=== PATIENT | female | born 1975 | race Caucasian/White ===

== ENCOUNTER → 2018-04-15 11:30 | Outpatient (CLI) | payer OTHER, SELFPAY ==
--- NOTE | 2018-04-15 | DI.MG.S_ITS ---
BILATERAL DIGITAL SCREENING MAMMOGRAM 3D/2D WITH CAD WITH AUGMENTATION: 04/15/2018 CLINICAL: Routine screening. Comparison is made to exams dated: 11/09/2016 mammogram, 08/27/2008 mammogram, and 09/18/2008 mammogram - outside location. The tissue of both breasts is heterogeneously dense. This may lower the sensitivity of mammography. Current study was also evaluated with a Computer Aided Detection (CAD) system. Bilateral breast implants are intact. No significant masses, calcifications, or other findings are seen in either breast. There has been no significant interval change. IMPRESSION: NEGATIVE There is no mammographic evidence of malignancy. A 1 year screening mammogram is recommended. This exam was interpreted at Station ID: [id number]. NOTE: For mammograms, a report in lay terms will be sent to the patient. Approximately 15% of breast malignancies will not be visualized mammographically. In the management of a palpable breast mass, a negative mammogram must not discourage biopsy of a clinically suspicious lesion. Electronically Signed By: Alejandro [email or web address]:04/15/2018 14:30:56 letter sent: Normal Exam ACR BI-RADS Category 1: Negative 3341F
== END ==
PROVIDERS: Visit Provider Nurse Practitioner Family
DX: Z12.31 Encounter for screening mammogram for malignant neoplasm of breast (principal)
CPT/HCPCS: 77063; 77067

== ENCOUNTER 2019-05-04 15:58 | Emergency (ER) | payer BC, SELFPAY ==
[2019-05-04 16:55] VITALS: BP 131/73; PULSE 57; RESP 16; TEMP 36.3; O2SAT 100; BMI 18.7
[2019-05-04 17:22] LABS: Prothrombin Time 11.2 SECONDS (10.1-12.7)
[2019-05-04 17:26] LABS: Add Manual Diff / Slide Review NO; BUN Creatinine Ratio 15.7 (6-22); Basophils Absolute Auto 100 /uL (0-100); Basophils Percent Auto 1.3 % (0-2); Blood Urea Nitrogen 11 mg/dL (7-17); Calcium 9.4 mg/dL (8.4-10.2); Carbon Dioxide 18 mmol/L (22-32); Chloride 97 mmol/L (98-107); Eosinophils Absolute Auto 100 /uL (0-450); Eosinophils Percent Auto 1.4 % (2-4); Estimated Glomerular Filt Rate > 60.0 mL/min (>60); Glucose 104 mg/dL (70-100); Hematocrit 35.5 % (36-46); Hemoglobin 11.8 g/dL (12.0-16.0); Lymphocytes Absolute Auto 1100 /uL (1100-4500); Lymphocytes Percent Auto 18.2 % (25-40); Mean Corpuscular HGB Conc 33.2 % (30-36); Mean Corpuscular Hemoglobin 28.2 PG (26-34); Mean Corpuscular Volume 84.7 fL (80-100); Monocytes Absolute Auto 200 /uL (0-900); Neutrophils Absolute Auto 4700 /uL (1500-7000); Neutrophils Percent Auto 75.1 % (50-75); Platelet Count 165 X10^3/uL (150-400); Red Blood Cell Count 4.19 X10^6/uL (4.0-5.2); Red Cell Distribution Width 14.3 % (11.6-14.8); Sodium 132 mmol/L (137-145); White Blood Cell Count 6.3 X10^3/uL (4.5-11.0)
[2019-05-04 17:29] LABS: HEMOLYSIS 67 (0-50)
--- NOTE | 2019-05-04 17:51 | DI.CT.S_ITS ---
PROCEDURE: CT KIDNEY URETER BLADDER (KUB) INDICATIONS: flank pain x 4 days blood in urine TECHNIQUE: Noncontrast 5 mm thick sections acquired from the diaphragms to the symphysis. 5 mm thick coronal and sagittal reformats were then performed. For radiation dose reduction, the following was used: automated exposure control, adjustment of mA and/or kV according to patient size. COMPARISON: None. FINDINGS: Image quality: Excellent. Lung bases: Lung bases are clear. Heart size is normal. Bilateral mammoplasty implants are partially seen. Urinary system: There is an obstructing stone seen involving the distal right ureter, as on series 2 image 72 measuring 3 mm. There is associated moderate right-sided hydroureter and hydronephrosis. Moderate right-sided perinephric fat stranding can be seen. Tiny nonobstructing kidney stones are seen on both sides, which measure up to 1 mm. No left-sided hydronephrosis is seen. The kidneys demonstrate normal size. No focal bladder wall thickening is seen. No calcified bladder stones are seen. Other solid organs: Liver is normal in size. Gallbladder has been removed. Pancreas is normal in contours. Spleen is normal in size. No adrenal nodules. Peritoneum and bowel: Unenhanced bowel loops demonstrate normal wall thickness and caliber. No free fluid or air. A normal appendix is incidentally noted. Nodes and vessels: No retroperitoneal or mesenteric adenopathy by size criteria. Aorta and inferior vena cava are normal in caliber. Abdominal wall: No ventral hernias. Pelvis: No free pelvic fluid. No inguinal hernias or adenopathy. Bones: No suspicious bony lesions. No vertebral body compression fractures. IMPRESSION: 3 mm obstructing stone seen involving the distal right ureter, with associated right-sided hydroureter, hydronephrosis, perinephric fat stranding. Nonobstructing bilateral renal stones are seen. Incidental note is made of: Mammoplasty implants Cholecystectomy Normal appendix Dictated by: Willis Yeung M.D. on 05/04/2019 at 19:03 Approved by: Willis Yeung M.D. on 05/04/2019 at 19:06
[2019-05-04 17:57] LABS: Appearance Urine UA SL CLOUDY; Bilirubin Urine UA NEGATIVE (NEGATIVE); Color Urine UA YELLOW; Glucose Urine UA NEGATIVE (Negative); Ketones Urine UA 3+ (NEGATIVE); Leukocyte Esterase Urine UA NEGATIVE (NEGATIVE); Nitrite Urine UA NEGATIVE (Negative); Occult Blood Urine UA 3+ (Negative); Protein Urine UA 1+ (Negative); Urobilinogen Urine UA 0.2 E.U./dL (0.2)
[2019-05-04] MEDS: KETOROLAC 60 MG/2 ML VIAL 15 MG INJ (18:02)
[2019-05-04] MEDS: ONDANSETRON 4 MG/2 ML INJ IV ×2 (18:03→21:02)
[2019-05-04 18:16] LABS: RBC Urine 30-100/HPF (0-5/HPF); WBC Urine 1-5/HPF (0-5/HPF)
[2019-05-04 18:17] LABS: Bacteria Urine Moderate (10-30); Calcium Oxalate Crystals Urine Few; Culture Indicated Urine Cult Not Indicated
[2019-05-04] MEDS: SODIUM CHLORIDE 0.9% 1,000 ML 1000 ML IV (18:18)
[2019-05-04 18:22] VITALS: BP 104/64; PULSE 56; RESP 16; O2SAT 100
--- NOTE | 2019-05-04 18:35 | ED.ABDPAIN ---
HPI - Abdominal Pain <NIRAV Abbasi - Last Filed: 05/04/19 21:51> General Chief Complaint: Abdominal Pain Stated Complaint: kidney stones, in pain, states on lots of pain med Time Seen by Provider: 05/04/19 17:53 Source: patient Mode of arrival: ambulatory Limitations: no limitations History of Present Illness HPI narrative: This is a 43-year-old female, nonsmoker, presents with family with chief complain of right flank pain and urinary frequency for 4 days. Patient self treated at home with Tylenol and Motrin for pain and she had amoxicillin at home and started antibiotic medication thinking she may have urinary tract infection. Then, patient was seen by her primary care provider and had urine sample evaluated and sent out for culture and is currently waiting for the result. Patient reports she is prescribed with amoxicillin 500 mg q.i.d. dose for 10 days. She has completed for 4 days so far. She felt like her symptoms were improving up until yesterday then, she has recurring right flank pain, chills, emesis x1, hematuria when she submitted a urine sample today in ED. She reports pain is strong and dull aches. Patient is unable to explained aggravating or elevating factors for pain. Patient has UTI in the past twice in her lifetime and no history of kidney stones. I contacted our lab for urine culture test result since the patient's primary care provider's EMR is not available to view. The lab does not have urine culture test from the patient and this might have been sent out to other lab, unable to verify sensitivity test result. Patient had taken [place] at home today but the pain has not been effectively managed. She also had taken tamsulosin 0.4 mg 2 doses today and had started prednisone taper dose. Related Data Previous Rx's Medication Instructions Recorded cephalexin [Keflex] 500 mg PO Q6H 10 Days #40 cap 05/04/19 ondansetron 4 mg PO Q6-8H PRN #7 tab 05/04/19 oxycodone-acetaminophen [Percocet] 1 tab PO Q4-6H PRN #10 tab 05/04/19 Allergies Allergy/AdvReac Type Severity Reaction Status Date / Time codeine [CODEINE] AdvReac Unknown NAUSEA / Unverified 11/28/17 12:50 VOMITING Review of Systems <NIRAV Abbasi - Last Filed: 05/04/19 21:51> Review of Systems Narrative: General: See HPI HEENT: Denies sinus pain, ear pain, sore throat, difficulty swallowing, dizziness. Respiratory: Denies dyspnea, cough, wheezing, hemoptysis, sputum. Cardiovascular: Denies chest pain, palpitations, orthopnea, edema. Gastrointestinal: Reports nausea and vomitingx1. Mild suprapubic discomfort. Denies diarrhea, constipation, melena. : Reports urinary frequency, had a small blood in urine when provide urine sample in ED. Denies dysuria, incontinence, previous hematuria, urinary retention. Musculoskeletal: Reports right lower back pain. Denies weakness, joint pain or bony pain. Skin: Denies rash, skin lesions, or other. Neurologic: Denies weakness, headache, numbness, change in speech, confusion, seizures, incoordination. Psychiatric: No concerning psychosocial issues. 12-point review of systems is negative except for those stated above. PFSH <NIRAV Abbasi - Last Filed: 05/04/19 21:51> Surgical History H/O breast augmentation (Acute) History of bilateral tubal ligation (Acute) History of cholecystectomy (Acute) Social History Smoking Status: Never smoker Social History Smoking Status: Never smoker Exam <NIRAV Abbasi - Last Filed: 05/04/19 21:51> Narrative Exam Narrative: GEN: Alert, oriented x 3, well appearing and nourished, and mild distress. Head: Normal cephalic, atraumatic. No scalp or temporal tenderness, palpable mass or rash. EYES: Pupils are equal, round, and reactive to light and accommodation. Extraocular muscles are intact bilaterally. There is no subconjunctival hemorrhage, exudate and sclera non-icteric. ENT: Bilateral auditory canals and tympanic membranes clear. Hearing grossly intact. Nose without bleeding, purulent discharge or deviation. Facial sinuses nontender to palpate. Mucous membrane moist, no mucosal lesion. Throat without erythema, tonsillar hypertrophy or exudate. Uvula in midline, airway patent. Neck: Trachea in midline. No JVD, non-tender without lymphadenopathy. No masses or thyroid megaly. Supple, non-tender and no meningeal signs. CARDIAC: Normal regular rate and rhythm without murmurs, gallops, or rubs. No chest wall tenderness. No peripheral edema, cyanosis or pallor. Capillary refill is less than 2 seconds. RESPIRATORY: Lungs are cleat to auscultate bilaterally. No cough, wheezes, rales, or rhonchi. No stridor, respiratory distress, increase work of breathing, or accessary muscle used. ABD: Mild tenderness in suprapubic region with palpation. Abdomen soft and non-distended. No guarding or rebound tenderness to palpate. Bowel sounds are normal in all 4 quadrants. There is no palpable masses or organomegaly. EXT: Full painless ROM of all extremities with no loss of sensation, strength, effusion or edema. SKIN: Warm, dry, normal color for patient. No erythema, lesions or rash over visible areas. BACK: Right flank pain tender to palpate. No deformity or crepitance. NEUROLOGICAL: Alert and oriented to place, time and person. Sensation and motor function intact bilaterally. No facial droops, dysphasia. PSYCHIATRIC: Good judgement and reason, without hallucinations, abnormal affect or abnormal behaviors during the examination. Initial Vital Signs Initial Vital Signs: Vital Signs Temperature 97.3 F L 05/04/19 16:55 Pulse Rate 57 L 05/04/19 16:55 Respiratory Rate 16 05/04/19 16:55 Blood Pressure 131/73 05/04/19 16:55 Pulse Oximetry 100 05/04/19 16:55 <Cinthia Ballard DO - Last Filed: 05/06/19 18:51> Initial Vital Signs Initial Vital Signs: Vital Signs Temperature 97.3 F L 05/04/19 16:55 Pulse Rate 57 L 05/04/19 16:55 Respiratory Rate 16 05/04/19 16:55 Blood Pressure 131/73 05/04/19 16:55 Pulse Oximetry 100 05/04/19 16:55 Scores <NIRVA Abbasi - Last Filed: 05/04/19 21:51> GCS [place] coma scale eye opening: Spontaneous Connie coma scale verbal response: Orientated Connie coma scale motor response: Obey commands Connie coma scale total score: 15 Course <NIRAV Abbasi - Last Filed: 05/04/19 21:51> Orders Ordered: Discontinued Medications Sodium Chloride (Normal Saline 0.9%) 1,000 mls @ 1,000 mls/hr IV BOLUS ONE Stop: 05/04/19 19:06 Last Infusion: 05/04/19 19:27 Dose: 0 mls/hr Documented by: Admin: 05/04/19 18:18 Dose: 1,000 mls/hr Documented by: FRANCES Ketorolac Tromethamine (Toradol) 15 mg INJ NOW ONE Stop: 05/04/19 17:52 Last Admin: 05/04/19 18:02 Dose: 15 mg Documented by: FRANCES Ketorolac Tromethamine (Toradol) 15 mg IV NOW ONE Stop: 05/04/19 20:04 Last Admin: 05/04/19 20:17 Dose: 15 mg Documented by: RENETTA Morphine Sulfate (Morphine) 4 mg IV NOW ONE Stop: 05/04/19 20:04 Last Admin: 05/04/19 20:16 Dose: 4 mg Documented by: RENETTA Ondansetron HCl (Zofran) 4 mg IV NOW ONE Stop: 05/04/19 17:52 Last Admin: 05/04/19 18:03 Dose: 4 mg Documented by: FRANCES Ondansetron HCl (Zofran Odt Prepack) 1 bottle MISC SEEINSTR ONE Stop: 05/04/19 20:56 Last Admin: 05/04/19 21:02 Dose: 1 bottle Documented by: RENETTA Ondansetron HCl (Zofran) 4 mg IV NOW ONE Stop: 05/04/19 20:56 Last Admin: 05/04/19 21:02 Dose: 4 mg Documented by: RENETTA Vital Signs Vital signs: Vital Signs - 8 hr 05/04/19 16:55 05/04/19 18:22 05/04/19 20:58 Temperature 97.3 F L Pulse Rate 57 L 56 L 57 L Respiratory Rate 16 16 16 Blood Pressure 131/73 Blood Pressure [Left Arm] 104/64 118/75 Pulse Oximetry 100 100 100 <Cinthia Ballard DO - Last Filed: 05/06/19 18:51> Orders Ordered: Discontinued Medications Sodium Chloride (Normal Saline 0.9%) 1,000 mls @ 1,000 mls/hr IV BOLUS ONE Stop: 05/04/19 19:06 Last Infusion: 05/04/19 19:27 Dose: 0 mls/hr Documented by: Admin: 05/04/19 18:18 Dose: 1,000 mls/hr Documented by: FRANCES Ketorolac Tromethamine (Toradol) 15 mg INJ NOW ONE Stop: 05/04/19 17:52 Last Admin: 05/04/19 18:02 Dose: 15 mg Documented by: FRANCES Ketorolac Tromethamine (Toradol) 15 mg IV NOW ONE Stop: 05/04/19 20:04 Last Admin: 05/04/19 20:17 Dose: 15 mg Documented by: RENETTA Morphine Sulfate (Morphine) 4 mg IV NOW ONE Stop: 05/04/19 20:04 Last Admin: 05/04/19 20:16 Dose: 4 mg Documented by: RENETTA Ondansetron HCl (Zofran) 4 mg IV NOW ONE Stop: 05/04/19 17:52 Last Admin: 05/04/19 18:03 Dose: 4 mg Documented by: FRANCES Ondansetron HCl (Zofran Odt Prepack) 1 bottle MISC SEEINSTR ONE Stop: 05/04/19 20:56 Last Admin: 05/04/19 21:02 Dose: 1 bottle Documented by: RENETTA Ondansetron HCl (Zofran) 4 mg IV NOW ONE Stop: 05/04/19 20:56 Last Admin: 05/04/19 21:02 Dose: 4 mg Documented by: RENETTA Vital Signs Vital signs: Vital Signs - 8 hr 05/04/19 16:55 05/04/19 18:22 05/04/19 20:58 Temperature 97.3 F L Pulse Rate 57 L 56 L 57 L Respiratory Rate 16 16 16 Blood Pressure 131/73 Blood Pressure [Left Arm] 104/64 118/75 Pulse Oximetry 100 100 100 MDM - Abdominal Pain <Jameson NIRAV Francis - Last Filed: 05/04/19 21:51> Differential Diagnosis Differential diagnosis: Likely other (Pyelonephritis, UTI, kidney stone, obstructing kidney stone with infection) Medical Records Attestation: I reviewed the patient's medical records. Lab Data Attestation: I reviewed the patient's lab results. Result diagrams: 05/04/19 17:05 05/04/19 17:05 Labs: Lab Results 05/04/19 05/04/19 05/04/19 Range/Units 17:05 17:05 17:05 WBC 6.3 (4.5-11.0) X10^3/uL RBC 4.19 (4.0-5.2) X10^6/uL Hgb 11.8 L (12.0-16.0) g/dL Hct 35.5 L (36-46) % MCV 84.7 (80-100) fL MCH 28.2 (26-34) PG MCHC 33.2 (30-36) % RDW 14.3 (11.6-14.8) % Plt Count 165 (150-400) X10^3/uL Neut % (Auto) 75.1 H (50-75) % Lymph % (Auto) 18.2 L (25-40) % [place] % (Auto) 4.0 (3-14) % Eos % (Auto) 1.4 L (2-4) % Baso % (Auto) 1.3 (0-2) % Neut # (Auto) 4700 (9065-6479) /uL Lymph # (Auto) 1100 (4099-9057) /uL [place] # (Auto) 200 (0-900) /uL Eos # (Auto) 100 (0-450) /uL Baso # (Auto) 100 (0-100) /uL PT 11.2 (10.1-12.7) SECONDS INR 1.0 (0.9-1.3) Sodium 132 L (137-145) mmol/L Potassium 4.0 (3.4-5.1) mmol/L Chloride 97 L (98-107) mmol/L Carbon Dioxide 18 L (22-32) mmol/L BUN 11 (7-17) mg/dL Creatinine 0.70 (0.52-1.04) mg/dL Estimated GFR > 60.0 (>60) mL/min BUN/Creatinine Ratio 15.7 (6-22) Glucose 104 H (70-100) mg/dL Calcium 9.4 (8.4-10.2) mg/dL Urine Color Urine Appearance Urine pH (4.5-8.0) Ur Specific [place] (1.000-1.035) Urine Protein (Negative) Urine Glucose (UA) (Negative) g/dL Urine Ketones (NEGATIVE) Urine Occult Blood (Negative) Urine Nitrate (Negative) Urine Bilirubin (NEGATIVE) Urine Urobilinogen (0.2) E.U./dL Ur Leukocyte Esterase (NEGATIVE) Urine RBC (0-5/HPF) Urine WBC (0-5/HPF) Calcium Oxalate Crystal Urine Bacteria (None) Ur Culture Indicated? 05/04/19 Range/Units 17:45 WBC (4.5-11.0) X10^3/uL RBC (4.0-5.2) X10^6/uL Hgb (12.0-16.0) g/dL Hct (36-46) % MCV (80-100) fL MCH (26-34) PG MCHC (30-36) % RDW (11.6-14.8) % Plt Count (150-400) X10^3/uL Neut % (Auto) (50-75) % Lymph % (Auto) (25-40) % [place] % (Auto) (3-14) % Eos % (Auto) (2-4) % Baso % (Auto) (0-2) % Neut # (Auto) (4965-5375) /uL Lymph # (Auto) (8639-4281) /uL [place] # (Auto) (0-900) /uL Eos # (Auto) (0-450) /uL Baso # (Auto) (0-100) /uL PT (10.1-12.7) SECONDS INR (0.9-1.3) Sodium (137-145) mmol/L Potassium (3.4-5.1) mmol/L Chloride (98-107) mmol/L Carbon Dioxide (22-32) mmol/L BUN (7-17) mg/dL Creatinine (0.52-1.04) mg/dL Estimated GFR (>60) mL/min BUN/Creatinine Ratio (6-22) Glucose (70-100) mg/dL Calcium (8.4-10.2) mg/dL Urine Color Yellow Urine Appearance Sl cloudy Urine pH 6.0 (4.5-8.0) Ur Specific [place] 1.020 (1.000-1.035) Urine Protein 1+ H (Negative) Urine Glucose (UA) Negative (Negative) g/dL Urine Ketones 3+ H (NEGATIVE) Urine Occult Blood 3+ H (Negative) Urine Nitrate Negative (Negative) Urine Bilirubin Negative (NEGATIVE) Urine Urobilinogen 0.2 (0.2) E.U./dL Ur Leukocyte Esterase Negative (NEGATIVE) Urine RBC 30-100/hpf H (0-5/HPF) Urine WBC 1-5/hpf (0-5/HPF) Calcium Oxalate Crystal Few H Urine Bacteria Moderate (10-30) H (None) Ur Culture Indicated? Cult not indicated Imaging Data CT-KUB: Radiologist's impression: [address] [address] [address] Scan Report Signed Patient: Valerie Bauitsta EMR#: [id number] : 1975Acct:[id number] Age/Sex: 43 / FDate of Service: 05/04/19 Loc: ED Accession Number: [id number] Procedure: CT kidney ureter bladder (KUB) Ordering Provider: Jameson Francis PROCEDURE: CT KIDNEY URETER BLADDER (KUB) INDICATIONS: flank pain x 4 days blood in urine TECHNIQUE: Noncontrast 5 mm thick sections acquired from the diaphragms to the symphysis. 5 mm thick coronal and sagittal reformats were then performed. For radiation dose reduction, the following was used: automated exposure control, adjustment of mA and/or kV according to patient size. COMPARISON: None. FINDINGS: Image quality: Excellent. Lung bases: Lung bases are clear. Heart size is normal. Bilateral mammoplasty implants are partially seen. Urinary system: There is an obstructing stone seen involving the distal right ureter, as on series 2 image 72 measuring 3 mm. There is associated moderate right-sided hydroureter and hydronephrosis. Moderate right-sided perinephric fat stranding can be seen. Tiny nonobstructing kidney stones are seen on both sides, which measure up to 1 mm. No left-sided hydronephrosis is seen. The kidneys demonstrate normal size. No focal bladder wall thickening is seen. No calcified bladder stones are seen. Other solid organs: Liver is normal in size. Gallbladder has been removed. Pancreas is normal in contours. Spleen is normal in size. No adrenal nodules. Peritoneum and bowel: Unenhanced bowel loops demonstrate normal wall thickness and caliber. No free fluid or air. A normal appendix is incidentally noted. Nodes and vessels: No retroperitoneal or mesenteric adenopathy by size criteria. Aorta and inferior vena cava are normal in caliber. Abdominal wall: No ventral hernias. Pelvis: No free pelvic fluid. No inguinal hernias or adenopathy. Bones: No suspicious bony lesions. No vertebral body compression fractures. IMPRESSION: 3 mm obstructing stone seen involving the distal right ureter, with associated right-sided hydroureter, hydronephrosis, perinephric fat stranding. Nonobstructing bilateral renal stones are seen. Incidental note is made of: Mammoplasty implants Cholecystectomy Normal appendix Dictated by: Willis Yeung M.D. on 05/04/2019 at 19:03 Approved by: Willis Yeung M.D. on 05/04/2019 at 19:06 [facility] Narrative Medical decision making narrative: This patient came in with right-sided flank pain with urinary frequency and is currently being treated with amoxicillin for UTI symptoms for last 4.5 days. She has been managing her pain with Tylenol, Motrin, [place], tamsulosin, and prednisone. Patient reports her symptoms were improving up until yesterday and noticed recurring worsening pain, chills, vomitingx1 today. Currently, unable to locate her urine culture result for sensitivity that was sent up by her primary care physician in our ED. Patient's urine test today here shows blood, calcium oxalate crystal, bacteria with negative urine nitrate and leukocyte esterase. I did order urine culture and sensitivity test. CT scan KUB was obtained and shows 3 mm of obstructing kidney stone in right ureter and moderate hydronephrosi and perinephric fat stranding. Patient also has nonobstructing bilateral renal stones. The blood tests were unremarkable with normal creatinine level as 0.7 and mildly low in sodium and chloride and no leukocytosis. Patient is afebrile with within normal vital signs. Patient was medicated with IV fluid, Zofran, told are and morphine for patient's symptoms. Patient was able to void while in ED without difficulty. Dr. Townsend, Urologist, was consulted and suggested that patient could be managed outpatient follow-up with a urologist with strict return precautions as long as patient is able to manage pain and nausea with p.o. medications at home, without fever and patient is able to void without difficulty since patient has >50% change passing the stone. The findings and return precautions were discussed with the patient and patient advised to follow up with the Urology Clinic. Patient discharged to home with a her own tamsulosin, antibiotic medications changed from amoxicillin to Keflex q.i.d. 10 day course, Zofran and pain medication has been changed to Percocet from [place]. Patient advised to hydrate adequately to help passing the stone. Patient advised to stop taking prednisone and taper course and to decrease times a loss into once a day dose from twice a day dose that she was currently taking at home. No further questions at this time and patient is discharged to home with her son. Narcotic pain medication precautions were discussed with the patient. <Cinthia Ballard, DO - Last Filed: 05/06/19 18:51> Lab Data Labs: Lab Results 05/04/19 05/04/19 05/04/19 Range/Units 17:05 17:05 17:05 WBC 6.3 (4.5-11.0) X10^3/uL RBC 4.19 (4.0-5.2) X10^6/uL Hgb 11.8 L (12.0-16.0) g/dL Hct 35.5 L (36-46) % MCV 84.7 (80-100) fL MCH 28.2 (26-34) PG MCHC 33.2 (30-36) % RDW 14.3 (11.6-14.8) % Plt Count 165 (150-400) X10^3/uL Neut % (Auto) 75.1 H (50-75) % Lymph % (Auto) 18.2 L (25-40) % [place] % (Auto) 4.0 (3-14) % Eos % (Auto) 1.4 L (2-4) % Baso % (Auto) 1.3 (0-2) % Neut # (Auto) 4700 (8491-2309) /uL Lymph # (Auto) 1100 (5869-1206) /uL [place] # (Auto) 200 (0-900) /uL Eos # (Auto) 100 (0-450) /uL Baso # (Auto) 100 (0-100) /uL PT 11.2 (10.1-12.7) SECONDS INR 1.0 (0.9-1.3) Sodium 132 L (137-145) mmol/L Potassium 4.0 (3.4-5.1) mmol/L Chloride 97 L (98-107) mmol/L Carbon Dioxide 18 L (22-32) mmol/L BUN 11 (7-17) mg/dL Creatinine 0.70 (0.52-1.04) mg/dL Estimated GFR > 60.0 (>60) mL/min BUN/Creatinine Ratio 15.7 (6-22) Glucose 104 H (70-100) mg/dL Calcium 9.4 (8.4-10.2) mg/dL Urine Color Urine Appearance Urine pH (4.5-8.0) Ur Specific [place] (1.000-1.035) Urine Protein (Negative) Urine Glucose (UA) (Negative) g/dL Urine Ketones (NEGATIVE) Urine Occult Blood (Negative) Urine Nitrate (Negative) Urine Bilirubin (NEGATIVE) Urine Urobilinogen (0.2) E.U./dL Ur Leukocyte Esterase (NEGATIVE) Urine RBC (0-5/HPF) Urine WBC (0-5/HPF) Calcium Oxalate Crystal Urine Bacteria (None) Ur Culture Indicated? 05/04/19 Range/Units 17:45 WBC (4.5-11.0) X10^3/uL RBC (4.0-5.2) X10^6/uL Hgb (12.0-16.0) g/dL Hct (36-46) % MCV (80-100) fL MCH (26-34) PG MCHC (30-36) % RDW (11.6-14.8) % Plt Count (150-400) X10^3/uL Neut % (Auto) (50-75) % Lymph % (Auto) (25-40) % [place] % (Auto) (3-14) % Eos % (Auto) (2-4) % Baso % (Auto) (0-2) % Neut # (Auto) (8539-0223) /uL Lymph # (Auto) (0959-4526) /uL [place] # (Auto) (0-900) /uL Eos # (Auto) (0-450) /uL Baso # (Auto) (0-100) /uL PT (10.1-12.7) SECONDS INR (0.9-1.3) Sodium (137-145) mmol/L Potassium (3.4-5.1) mmol/L Chloride (98-107) mmol/L Carbon Dioxide (22-32) mmol/L BUN (7-17) mg/dL Creatinine (0.52-1.04) mg/dL Estimated GFR (>60) mL/min BUN/Creatinine Ratio (6-22) Glucose (70-100) mg/dL Calcium (8.4-10.2) mg/dL Urine Color Yellow Urine Appearance Sl cloudy Urine pH 6.0 (4.5-8.0) Ur Specific [place] 1.020 (1.000-1.035) Urine Protein 1+ H (Negative) Urine Glucose (UA) Negative (Negative) g/dL Urine Ketones 3+ H (NEGATIVE) Urine Occult Blood 3+ H (Negative) Urine Nitrate Negative (Negative) Urine Bilirubin Negative (NEGATIVE) Urine Urobilinogen 0.2 (0.2) E.U./dL Ur Leukocyte Esterase Negative (NEGATIVE) Urine RBC 30-100/hpf H (0-5/HPF) Urine WBC 1-5/hpf (0-5/HPF) Calcium Oxalate Crystal Few H Urine Bacteria Moderate (10-30) H (None) Ur Culture Indicated? Cult not indicated Discharge Plan Departure Patient Disposition: Home Clinical Impression: Hydronephrosis with urinary obstruction due to renal calculus Discharge Date/Time: 05/04/19 21:52 Instructions: DI for Kidney Stones, DI for Hydronephrosis-Adult Activity Restrictions/Additional Instructions: You have been diagnosed with [obstructing kidney stone in 3 mm on right side with moderate hydronephrosis per CT test. Your urine is being cultured at this time and you will get a phone call if you need an antibiotic medication treatment other than Keflex and will switch you medication to Keflex from Amoxicillin. Please stop taking Amoxicillin. You can take tamsulosin 0.4 mg that you have once a day instead of twice a day before bed to help passing kidney stone. You do not need to take prednisone for this problem. I am prescribing Zofran for home use as needed for nausea. You will be going home with prepack Zofran for tonight if you needed. I also am prescribing you with Percocet since hydrocodone is not to effective for the pain. You can continue to take ibuprofen or other NSAIDS as needed for pain]. What to do: *Take your medications as directed. *Follow up with your primary care provider/urolgoist in 2-3 days, call for an appointment. Let them know you were seen in the ED and that we asked you to be seen in follow up. *Return to ED if you have any new, worsening, or concerning symptoms, such as [chest pain, breathing difficulty, unable to tolerate fluids, fever, unable to void with urinary urgency, dark blood in your urine, or any acute concerns]. [facility] phone # [phone] and [facility] phone # [phone]. You may need your PCP's referral to these clinic. Prescriptions: New oxycodone-acetaminophen [Percocet] 5-325 mg tablet 1 tab PO Q4-6H PRN (Reason: pain) Qty: 10 RF: 0 ondansetron 4 mg tablet,disintegrating 4 mg PO Q6-8H PRN (Reason: nausea and vomiting) Qty: 7 RF: 0 cephalexin [Keflex] 500 mg capsule 500 mg PO Q6H 10 Days Qty: 40 RF: 0 Referrals: Anneliees Emery ARNP [Non-Staff] -
[2019-05-04] MEDS: MORPHINE 4 MG/ML INJ IV (20:16)
[2019-05-04] MEDS: KETOROLAC 60 MG/2 ML VIAL 15 MG IV (20:17)
[2019-05-04 20:58] VITALS: BP 118/75; PULSE 57; RESP 16; O2SAT 100
[2019-05-04] MEDS: ONDANSETRON 4 MG ODT PREPACK 1 BOTTLE MISC (21:02)
[2019-05-04 21:51] VITALS: BP 98/52; PULSE 51; RESP 18; O2SAT 99
== END 2019-05-04 21:52 | disposition home or self-care (01) ==
PROVIDERS: Emergency Medicine; Emergency Provider Nurse Practitioner Family
DX: N13.2 Hydronephrosis with renal and ureteral calculous obstruction (principal)
CPT/HCPCS: 36591; 51798; 74176; 80048; 81001; 85025; 85610; 87086; 96361; 96374; 96375; 96376; 99283; 99284; J1885; J2270; J2405

== ENCOUNTER → 2019-08-01 15:09 | Outpatient (CLI) | payer BC, SELFPAY ==
--- NOTE | 2019-08-01 | DI.US.S_ITS ---
PROCEDURE: US PELVIC COMPLETE INDICATIONS: MENORRHAGIA TECHNIQUE: Real-time scanning was performed of the pelvic organs, with image documentation. Additional endovaginal scanning was necessary due to incomplete visualization of the adnexal and endometrial structures by transabdominal scanning. COMPARISON: [facility], , PELVIC COMPLETE, 09/24/2017, 13:20. FINDINGS: Transabdominal scanning: Limited scanning through the kidneys shows no hydronephrosis. No pathologic free abdominal or pelvic fluid. Endovaginal scanning: Uterus: Uterus is normal in size at 8.2 x 3.8 x 4.4 cm. The endometrium measures 2.2 mm in combined thickness. Ovaries: Ovaries normal size. Simple cyst associated with left ovary measuring 2.8 cm. IMPRESSION: Simple left ovarian cyst. Dictated by: Je Magdaleno [facility] Interpreted: Bautista Vu MD on 08/01/2019 at 17:05 Approved by: Bautista Vu M.D. on 08/04/2019 at 10:11
== END ==
PROVIDERS: PCP Nurse Practitioner Family; Visit Provider Nurse Practitioner Family
DX: N92.0 Excessive and frequent menstruation with regular cycle (principal); N83.292 Other ovarian cyst, left side
CPT/HCPCS: 76830; 76856

== ENCOUNTER → 2019-08-05 07:36 | Outpatient (CLI) | payer BC, SELFPAY ==
[2019-08-05 09:04] LABS: Progesterone, Total 0.77 ng/mL; Prolactin 8.5 ng/mL (3.0-18.6)
[2019-08-07 16:52] LABS: C Peptide 0.68 ng/mL (0.80-3.85)
== END ==
PROVIDERS: PCP Nurse Practitioner Family; Visit Provider Nurse Practitioner Family
DX: R73.03 Prediabetes (principal); N92.0 Excessive and frequent menstruation with regular cycle; D64.9 Anemia, unspecified
CPT/HCPCS: 36415; 83001; 83002; 83525; 84144; 84146; 84681; 86341

== ENCOUNTER 2019-08-06 13:46 | Emergency (ER) | payer BC, SELFPAY ==
[2019-08-06 13:59] VITALS: BP 110/75; PULSE 59; RESP 12; TEMP 36.8; O2SAT 100; BMI 19.0
--- NOTE | 2019-08-06 14:34 | PC.NURSE ---
pt reports, menses every week, yesterday with dizziness and light headedness, had lab work done yesterday told she is anemic.
[2019-08-06 14:38] LABS: Add Manual Diff / Slide Review NO; Basophils Absolute Auto 100 /uL (0-100); Eosinophils Absolute Auto 100 /uL (0-450); Eosinophils Percent Auto 1.5 % (2-4); Hematocrit 35.2 % (36-46); Hemoglobin 11.5 g/dL (12.0-16.0); Lymphocytes Absolute Auto 800 /uL (1100-4500); Lymphocytes Percent Auto 20.9 % (25-40); Mean Corpuscular HGB Conc 32.7 % (30-36); Mean Corpuscular Hemoglobin 27.1 PG (26-34); Mean Corpuscular Volume 82.8 fL (80-100); Monocytes Absolute Auto 300 /uL (0-900); Monocytes Percent Auto 6.9 % (3-14); Neutrophils Absolute Auto 2600 /uL (1500-7000); Neutrophils Percent Auto 68.7 % (50-75); Platelet Count 233 X10^3/uL (150-400); Red Blood Cell Count 4.25 X10^6/uL (4.0-5.2); Red Cell Distribution Width 14.6 % (11.6-14.8); White Blood Cell Count 3.8 X10^3/uL (4.5-11.0)
[2019-08-06 14:44] LABS: BUN Creatinine Ratio 23.3 (6-22); Blood Urea Nitrogen 14 mg/dL (7-17); Calcium 9.4 mg/dL (8.4-10.2); Carbon Dioxide 28 mmol/L (22-32); Chloride 104 mmol/L (98-107); Estimated Glomerular Filt Rate > 60.0 mL/min (>60); Glucose 96 mg/dL (70-100); HEMOLYSIS < 15 (0-50); Potassium 3.6 mmol/L (3.4-5.1); Sodium 141 mmol/L (137-145)
[2019-08-06] MEDS: SODIUM CHLORIDE 0.9% 1,000 ML 1000 ML IV (14:48)
[2019-08-06 15:15] VITALS: BP 103/39; PULSE 60; RESP 16; O2SAT 100
[2019-08-06 15:30] VITALS: BP 101/63; PULSE 52; RESP 16; O2SAT 100
[2019-08-06 16:06] VITALS: BP 104/65; PULSE 48; RESP 17; O2SAT 100
--- NOTE | 2019-08-12 07:26 | ED.DIZZY ---
HPI - Dizziness General Chief Complaint: Dizziness Stated Complaint: light headed, hard time concentrating Time Seen by Provider: 08/06/19 13:49 Source: patient Mode of arrival: Ambulatory Limitations: no limitations History of Present Illness HPI Narrative: Patient comes to the emergency department complaining of feeling generally weak and dizzy for the last few weeks. Patient states that she has been going through menopause and is having menses every 2 weeks that is about the same as a normal period. Patient states that she has not been ill in any other way. She is normally healthy and fit woman and does not have any other medical problems. She was found to be anemic and has been on iron, but states that her bleeding has been ongoing and she is concerned that she is becoming progressively anemic. 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 Patient does have a history of hypothyroidism, but has been well controlled on her current medication. She states that her doctor has already tested her for vitamin deficiencies and these labs were found to be unremarkable. The patient states she drinks a lot of water, as she is normally very active. Patient denies fevers or chills. No chest pain or shortness breath. No nausea, vomiting, or diarrhea. No other complaints at this time. Related Data Home Medications Medication Instructions Recorded Confirmed iron 1 tab PO DAILY 08/06/19 08/06/19 thyroid (pork) [[place] Thyroid] 30 mg PO DAILY 08/06/19 08/06/19 Allergies Allergy/AdvReac Type Severity Reaction Status Date / Time codeine [CODEINE] AdvReac Unknown NAUSEA / Verified 08/06/19 13:59 VOMITING Review of Systems Constitutional Constitutional: Denies chills, Denies fatigue, Denies fever(s), Denies frequent falls, Denies lethargy and Reports weakness Eyes Eyes: Denies change in vision, Denies eye discharge, Denies irritation and Denies loss of vision ENT Ears, Nose, Mouth, and Throat: Denies change in voice, Denies dizziness, Denies neck pain, Denies sore throat and Denies throat swelling Cardiovascular Cardiovascular: Denies chest pain, Denies irregular heart rhythm, Denies lightheadedness, Denies palpitations, Denies dyspnea, Denies dyspnea on exertion and Denies orthopnea Respiratory Respiratory: Denies cough, Denies dyspnea, Denies dyspnea on exertion and Denies wheezing Gastrointestinal Gastrointestinal: Denies abdominal pain, Denies change in bowel habits, Denies diarrhea, Denies nausea and Denies vomiting Genitourinary Genitourinary: Denies hematuria, Denies flank pain, Denies urinary incontinence and Denies urinary urgency Musculoskeletal Musculoskeletal: Denies back pain, Denies muscle weakness, Denies neck pain, Denies numbness and Denies tingling Integumentary/Breasts Skin/Breast: Denies pruritus, Denies erythema, Denies rash and Denies wounds Neurologic Neurologic: Denies behavioral changes, Denies confusion, Denies dizziness, Denies frequent falls, Denies loss of vision, Denies numbness, Denies tingling and Reports weakness Psychiatric Psychiatric: Denies anxiety, Denies behavioral changes, Denies confusion, Denies depression, Denies homicidal ideation and Denies suicidal ideation Endocrine Endocrine: Denies fatigue, Denies flushing and Denies palpitations Hematologic/Lymphatic Hematologic/Lymphatic: Denies easy bruising Allergic/Immunologic Allergic/Immunologic: Denies urticaria, Denies throat swelling and Denies wheezing Patient History Medical History (Updated 08/12/19 @ 07:44 by Janee Yanez MD) Generalized weakness (Acute) Hypothyroidism (acquired) (Acute) Menopausal bleeding (Acute) Surgical History H/O breast augmentation (Acute) History of bilateral tubal ligation (Acute) History of cholecystectomy (Acute) Social History Smoking Status: Never smoker Smoking Status: Never smoker alcohol intake frequency: holidays/special occasions only Substance Use Type: does not use Exam Initial Vital Signs Initial Vital Signs: Vital Signs Temperature 98.2 F 08/06/19 13:59 Pulse Rate 59 L 08/06/19 13:59 Respiratory Rate 12 08/06/19 13:59 Blood Pressure 110/75 08/06/19 13:59 Pulse Oximetry 100 08/06/19 13:59 Const General: cooperative and well developed Nutritional Appearance: well nourished Orientation: alert, awake, oriented x3 and not confused HENMT Head: normocephalic and atraumatic Ears: external ears normal Nose: external nose normal and No nasal discharge Face and sinus: face symmetric and No dry mucous membranes Mouth: oral mucosae normal and moist mucous membranes Teeth and gingiva: dentition normal Eyes General: appearance normal, both eyes and all related structures Eyelids: eyelids normal Conjunctivae: conjunctivae normal Sclera: sclerae normal Pupils: PERRL EOM: EOM intact bilaterally Neck Neck: normal visual inspection, trachea midline, No lymphadenopathy, No midline deformity and No JVD Lymphatic: No lymphedema Chest Chest: normal inspection of the chest Resp Effort & Inspection: normal respiratory effort, able to speak in complete sentences, no respiratory distress and no use of accessory muscles Auscultation: clear to auscultation bilaterally, no rales, no rhonchi and no wheezes Cardio Rate: regular rate Rhythm: regular rhythm Heart Sounds: no click, no gallops, no murmurs and no rubs Pulses: normal peripheral pulses GI Inspection: non-distended Palpation: soft, no hepatosplenomegaly, No guarding, No pulsatile mass and No tender Auscultation: normal bowel sounds Back/Spine/Pelvis Back: No CVA tenderness Cervical Spine: cervical ROM normal and No pain with cervical ROM Thoracic/Lumbar Spine: thoracic and lumbar spine normal to inspection Skin General: no rashes or lesions noted, No jaundice and No petechiae Neuro General: alert, oriented x3, gait normal and no focal motor deficits Speech: speech normal Extrem General: full ROM, no clubbing, cyanosis or edema, no pedal edema and no calf tenderness Psych Appearance: well kempt Mental Status: mental status grossly normal Attitude: cooperative Thought Content: normal and suicidality Judgment: judgment good Course Course Course Narrative: The patient was well-appearing and hemodynamically stable, in the emergency department, but certainly, anemia was a concern with the ongoing bleeding. She was given a L 0.9 normal saline and was worked up with laboratory studies, which showed hemoglobin level 11.5. This was improved since her last one in May. I discussed with the patient that it is possible that she is having symptoms simply because of the hormone fluctuations themselves. I've advised her to follow-up with her primary care physician and her OBGYN for further evaluation. There is no evidence of acute illness this patient and she has already been tested for vitamin levels and her thyroid function, which would be other possible causes of her symptoms. Orders Ordered: Discontinued Medications Sodium Chloride (Normal Saline 0.9%) 1,000 mls @ 1,000 mls/hr IV BOLUS ONE Stop: 12/18/19 15:44 Last Infusion: 08/06/19 16:09 Dose: 0 mls/hr Documented by: Admin: 08/06/19 14:48 Dose: 1,000 mls/hr Documented by: [facility] - Dizziness Medical Records Attestation: I reviewed the patient's medical records. Lab Data Attestation: I reviewed the patient's lab results. Result diagrams: 08/06/19 14:00 08/06/19 14:00 Labs: Lab Results 08/06/19 08/06/19 Range/Units 14:00 14:00 WBC 3.8 L (4.5-11.0) X10^3/uL RBC 4.25 (4.0-5.2) X10^6/uL Hgb 11.5 L (12.0-16.0) g/dL Hct 35.2 L (36-46) % MCV 82.8 (80-100) fL MCH 27.1 (26-34) PG MCHC 32.7 (30-36) % RDW 14.6 (11.6-14.8) % Plt Count 233 (150-400) X10^3/uL Neut % (Auto) 68.7 (50-75) % Lymph % (Auto) 20.9 L (25-40) % [place] % (Auto) 6.9 (3-14) % Eos % (Auto) 1.5 L (2-4) % Baso % (Auto) 2.0 (0-2) % Neut # (Auto) 2600 (1645-0682) /uL Lymph # (Auto) 800 L (9992-3959) /uL [place] # (Auto) 300 (0-900) /uL Eos # (Auto) 100 (0-450) /uL Baso # (Auto) 100 (0-100) /uL Sodium 141 (137-145) mmol/L Potassium 3.6 (3.4-5.1) mmol/L Chloride 104 (98-107) mmol/L Carbon Dioxide 28 (22-32) mmol/L BUN 14 (7-17) mg/dL Creatinine 0.60 (0.52-1.04) mg/dL Estimated GFR > 60.0 (>60) mL/min BUN/Creatinine Ratio 23.3 H (6-22) Glucose 96 (70-100) mg/dL Calcium 9.4 (8.4-10.2) mg/dL Discharge Plan Departure Patient Disposition: Home Clinical Impression: Generalized weakness Anemia Qualifiers: Anemia type: unspecified type Qualified Code(s): D64.9 - Anemia, unspecified Discharge Date/Time: 08/06/19 16:16 Instructions: Anemia Prescriptions: No Action thyroid (pork) [[place] Thyroid] 60 mg tablet 30 mg PO DAILY RF: 0 iron 1 tab PO DAILY RF: 0 Referrals: Anneliese Emery ARNP [Primary Care Provider] -
== END 2019-08-06 16:16 | disposition home or self-care (01) ==
PROVIDERS: Emergency Provider Emergency Medicine; PCP Nurse Practitioner Family
DX: D64.9 Anemia, unspecified (principal); N92.6 Irregular menstruation, unspecified
CPT/HCPCS: 36415; 80048; 85025; 93005; 93010; 96360; 99284

== ENCOUNTER → 2022-09-11 08:02 | Outpatient (CLI) | payer OTHER, SELFPAY ==
--- NOTE | 2022-09-11 | DI.US.S_ITS ---
PROCEDURE: US PELVIC COMPLETE INDICATIONS: POSTMENOPAUSAL BLEEDING TECHNIQUE: Real-time scanning was performed of the pelvic organs, with image documentation. Additional endovaginal scanning was necessary due to incomplete visualization of the adnexal and endometrial structures by transabdominal scanning. COMPARISON: [facility], , US PELVIC COMPLETE, 08/01/2019, 15:53. FINDINGS: Uterus: Uterus is anteverted and normal in size at 9.0 x 5.2 x 4.1 cm. The myometrium is slightly heterogeneous without dominant mass.. The endometrium measures 2.6 mm combined thickness. There is a hyperechoic 4.1 mm nodule adjacent to the anterior fundal subendometrium with increased vascular flow extending to this region. There is no fluid in the endometrial canal. There are several small nabothian cysts in the cervix. Ovaries: The right ovary measures 3.7 x 2.8 x 2.2 cm, with a calculated ovarian volume of 12.1 cc. The left ovary measures 4.6 x 3.9 x 3.1 cm, with a calculated ovarian volume of 28.8 cc. Each ovary contains a dominant follicle. The right measures 2.3 cm and the left measures 3.7 cm. Less than 12 follicles can be seen in each ovary. No adnexal masses are seen. Other: No pathologic free abdominal or pelvic fluid. IMPRESSION: 1. 4 mm hyperechoic vascular structure adjacent to the endometrium with differential diagnosis of ectopic endometrial tissue and polyp. Given slight heterogeneity of the uterine myometrium, adenomyosis may be present. Recommend pelvic MRI for further evaluation. 2. Right ovarian dominant follicle and a simple left ovarian cyst. We strive to produce accurate, complete, and clear reports of imaging services. To assist us in improving patient care, this report was composed using standard report templates and voice recognition software. Therefore, it may contain abnormal punctuation, insertions and/or omissions. Occasional wrong-word or sound-alike substitutions may occur. Though we review the report and make efforts to correct it, we do recommend that the report be read carefully in proper context to recognize any text inaccuracies. Dictated by: Lauren Cole M.D. on 09/11/2022 at 10:03 Approved by: Lauren Cole M.D. on 09/11/2022 at 10:12
== END ==
PROVIDERS: PCP Nurse Practitioner Family; Referring Provider Obstetrics & Gynecology; Visit Provider Obstetrics & Gynecology
DX: N95.0 Postmenopausal bleeding (principal); N83.292 Other ovarian cyst, left side
CPT/HCPCS: 76830; 76856; 93976

== ENCOUNTER → 2023-01-29 14:00 | Outpatient (CLI) | payer OTHER, SELFPAY ==
--- NOTE | 2023-01-29 | DI.MG.S_ITS ---
BILATERAL DIGITAL SCREENING MAMMOGRAM 3D/2D WITH CAD WITH AUGMENTATION: 01/29/2023 CLINICAL: Routine screening. Family history of breast cancer. Comparison is made to exams dated: 04/15/2018 mammogram - [facility], 11/09/2016 mammogram, and 09/18/2008 mammogram - outside location. Both breasts are heterogeneously dense, which may obscure small masses (category c / 51-75% glandular tissue). Current study was also evaluated with a Computer Aided Detection (CAD) system. Bilateral breast implants are intact. No significant masses, calcifications, or other findings are seen in either breast. There has been no significant interval change. IMPRESSION: BENIGN There is no mammographic evidence of malignancy. A 1 year screening mammogram is recommended. Consider also supplemental MRI screening. Based on Tyrer-Cuzick model (a risk assessment model), the patient's lifetime risk is 25.8% and her 10 year risk is 5.2%. If a patient has an elevated risk, a more comprehensive evaluation should be considered and/or a referral to a genetic counselor. The [place] [employer], [employer], and NCCN Guidelines advise the consideration of Breast MRI as an adjunct to screening mammography in patients whose Lifetime risk to develop breast cancer is 20% or higher. This exam was interpreted at Station ID: [id number]. NOTE: For mammograms, a report in lay terms will be sent to the patient. Approximately 15% of breast malignancies will not be visualized mammographically. In the management of a palpable breast mass, a negative mammogram must not discourage biopsy of a clinically suspicious lesion. Electronically Signed By: Henrik Rosenbaum M.D. lc/:01/29/2023 15:30:15 letter sent: Normal Exam ACR BI-RADS Category 2: Benign Finding(s) 3342F
== END ==
PROVIDERS: PCP Internal Medicine; Referring Provider Surgery; Visit Provider Surgery
DX: Z12.31 Encounter for screening mammogram for malignant neoplasm of breast (principal); Z80.3 Family history of malignant neoplasm of breast
CPT/HCPCS: 77063; 77067

== ENCOUNTER → 2023-04-09 06:52 | Outpatient (CLI) | payer OTHER, SELFPAY ==
--- NOTE | 2023-04-09 | DI.US.S_ITS ---
PROCEDURE: US PELVIC COMPLETE INDICATIONS: F/U LEFT OVARIAN CYST TECHNIQUE: Real-time scanning was performed of the pelvic organs, with image documentation. Additional endovaginal scanning was necessary due to incomplete visualization of the adnexal and endometrial structures by transabdominal scanning. COMPARISON: [facility], US, US PELVIC COMPLETE, 09/11/2022, 8:14. FINDINGS: Uterus: Uterus is anteverted and normal in size at 9.5 x 4.2 x 5.2 cm. The myometrium is homogeneous. The endometrium measures 2.3 mm combined thickness. Ovaries: The right ovary measures 1.8 x 1.1 x 2.3 cm, with a calculated ovarian volume of 2 cc. The left ovary measures 0.7 x 2.8 x 1.8 cm, with a calculated ovarian volume of 1.3 cc. The ovaries have a normal sonographic appearance. Resolved left ovarian follicle. No adnexal masses are seen. Other: No pathologic free abdominal or pelvic fluid. IMPRESSION: Resolved left ovarian follicle. Previously described polyp/ectopic endometrial tissue is not clearly identified on this exam. We strive to produce accurate, complete, and clear reports of imaging services. To assist us in improving patient care, this report was composed using standard report templates and voice recognition software. Therefore, it may contain abnormal punctuation, insertions and/or omissions. Occasional wrong-word or sound-alike substitutions may occur. Though we review the report and make efforts to correct it, we do recommend that the report be read carefully in proper context to recognize any text inaccuracies. Dictated by: Johnson Perez M.D. on 04/09/2023 at 11:11 Approved by: Johnson Perez M.D. on 04/09/2023 at 11:13
== END ==
PROVIDERS: PCP Internal Medicine; Referring Provider Obstetrics & Gynecology; Visit Provider Obstetrics & Gynecology
DX: N83.292 Other ovarian cyst, left side (principal)
CPT/HCPCS: 76830; 76856

== ENCOUNTER 2023-10-11 07:59 | Day surgery (SDC) | payer OTHER, SELFPAY ==
--- NOTE | 2023-10-11 08:14 | P.HP_ITS ---
History of Present Illness History of Present Illness Date Patient Seen: 10/11/23 Time Patient Seen: 08:14 Chief complaint: screening colonoscopy Narrative: Valerie is a 47 year old woman here for her first screening colonoscopy. No first degree relatives with colon cancer. [facility] Medical History (Updated 10/11/23 @ 08:15 by Camden Núñez MD) Menopausal bleeding Generalized weakness Hypothyroidism (acquired) Surgical History H/O breast augmentation History of cholecystectomy History of bilateral tubal ligation Social History Smoking Status: Never smoker Meds Home Medications and Allergies Home Medications Medication Instructions Recorded Confirmed Type iron 1 tab PO DAILY 08/06/19 08/06/19 History thyroid (pork) 60 mg tablet 30 mg PO DAILY 08/06/19 08/06/19 History ([place] Thyroid) sodium,potassium,mag sulfates 17.5 See Rx Instructions PO .COMPLEX 09/28/23 Rx gram-3.13 gram-1.6 gram oral soln #354 mL (Suprep Bowel Prep Kit) Allergies Allergy/AdvReac Type Severity Reaction Status Date / Time codeine [CODEINE] AdvReac Unknown NAUSEA / Verified 08/06/19 13:59 VOMITING Exam Const General: healthy appearing Assessment & Plan Assessment and plan (1) At average risk for colon cancer: Status: Acute Plan We reviewed the risks and benefits of colonoscopy for colon cancer screening and she would like to proceed.
[2023-10-11] MEDS: LACTATED RINGERS 1,000 ML 100 ML IV (08:36)
[2023-10-11 08:38] VITALS: BP 106/76; PULSE 16; RESP 16; TEMP 36.4; O2SAT 99
--- NOTE | 2023-10-11 09:14 | PM.OP.COLON ---
Operative Date/Time/Diagnoses Date of procedure: 10/11/23 Time of procedure: 09:14 Pre-op diagnosis: Colon cancer screening Post-op diagnosis: same Procedure & Clinicians Study performed: Colonoscopy Same procedure as scheduled: Yes Surgeon: Camden Núñez Procedure Notes Procedure in detail: Surgeon: Camden Núñez MD Anesthesia: Zackery Hawthorne MD Procedure: The patient was brought to the endoscopy suite, placed in left lateral decubitus position. The patient was connected to monitoring devices. A time-out was performed. Sedation was administered. Once the patient was adequately sedated, a digital rectal exam was performed and was normal. The scope was then inserted and advanced to the cecum where the appendiceal orifice was identified and photographed. The scope was then slowly withdrawn over greater than 6 minutes. The mucosa was thoroughly inspected. No polyps were identified. No diverticula were identified. The scope was retroflexed in the rectum. No other abnormalities were seen. The scope was straightened and removed. The patient was awakened and brought to recovery. Scope withdrawal time: 8 minutes Sedation time: 19 minutes EBL: 0 Findings: Normal healthy colon Post-procedure Recommendations: Colonoscopy in 10 years Disposition: PACU
[2023-10-11 09:18] VITALS: BP 94/51; PULSE 65; RESP 18; TEMP 36.6; O2SAT 100
[2023-10-11 09:23] VITALS: BP 96/57; PULSE 63; RESP 20; O2SAT 100
[2023-10-11 09:28] VITALS: BP 100/61; PULSE 69; RESP 14; TEMP 36.4; O2SAT 100
== END 2023-10-11 09:35 | disposition home or self-care (01) ==
PROVIDERS: PCP Internal Medicine; Referring Provider Surgery; Visit Provider Surgery
PROC: 0DJD8ZZ Inspection of Lower Intestinal Tract, Via Natural or Artificial Opening Endoscopic (ICD-10-PCS; CPT 45378; principal; 2023-10-11 08:45)
DX: Z12.11 Encounter for screening for malignant neoplasm of colon (principal)
CPT/HCPCS: 45378; J2704

== ENCOUNTER → 2024-05-05 14:42 | Outpatient (CLI) | payer OTHER, SELFPAY ==
--- NOTE | 2024-05-05 | DI.MG.S_ITS ---
BILATERAL DIGITAL SCREENING MAMMOGRAM 3D/2D WITH CAD WITH AUGMENTATION: 05/05/2024 CLINICAL: Routine screening. Family history of breast cancer. Comparison is made to exams dated: 01/29/2023 mammogram, 04/15/2018 mammogram - [facility], and 11/09/2016 mammogram - outside location. The breasts are heterogeneously dense, which may obscure small masses (category c / 51-75% glandular tissue). Current study was also evaluated with a Computer Aided Detection (CAD) system. Bilateral breast implants are intact. No significant masses, calcifications, or other findings are seen in either breast. There has been no significant interval change. IMPRESSION: BENIGN There is no mammographic evidence of malignancy. A 1 year screening mammogram is recommended. Based on Tyrer-Cuzick model (a risk assessment model), the patient's lifetime risk is 23.0% and her 10 year risk is 4.8%. If a patient has an elevated risk, a more comprehensive evaluation should be considered and/or a referral to a genetic counselor. The [place] [employer], [employer], and NCCN Guidelines advise the consideration of Breast MRI as an adjunct to screening mammography in patients whose Lifetime risk to develop breast cancer is 20% or higher. This exam was interpreted at Station ID: [id number]. NOTE: For mammograms, a report in lay terms will be sent to the patient. Approximately 15% of breast malignancies will not be visualized mammographically. In the management of a palpable breast mass, a negative mammogram must not discourage biopsy of a clinically suspicious lesion. Electronically Signed By: Sena Fraga M.D., Ph.D. jame/joe:05/06/2024 10:02:31 letter sent: Normal Exam ACR BI-RADS Category 2: Benign 3342F
== END ==
PROVIDERS: PCP Internal Medicine; Referring Provider Internal Medicine; Visit Provider Internal Medicine
DX: Z12.31 Encounter for screening mammogram for malignant neoplasm of breast (principal); Z80.3 Family history of malignant neoplasm of breast; R92.333 Mammographic heterogeneous density, bilateral breasts
CPT/HCPCS: 77063; 77067

== ENCOUNTER 2024-09-12 12:31 | Emergency (ER) | payer OTHER, SELFPAY ==
[2024-09-12] VITALS (11 sets, daily range): BP systolic 118–146; BP diastolic 63–90; PULSE 50–76; RESP 16–18; TEMP 36.8; O2SAT 96–100; BMI 18.8
[2024-09-12 13:15] LABS: Add Manual Diff / Slide Review NO; Basophils Absolute Auto 100 /uL (0-100); Basophils Percent Auto 0.4 % (0-2); Eosinophils Absolute Auto 0 /uL (0-450); Eosinophils Percent Auto 0.1 % (2-4); Hematocrit 41.1 % (36-46); Hemoglobin 14.1 g/dL (12.0-16.0); Lymphocytes Absolute Auto 800 /uL (1100-4500); Lymphocytes Percent Auto 6.3 % (25-40); Mean Corpuscular HGB Conc 34.4 % (30-36); Mean Corpuscular Volume 93.1 fL (80-100); Monocytes Absolute Auto 500 /uL (0-900); Monocytes Percent Auto 3.8 % (3-14); Neutrophils Absolute Auto 11200 /uL (1500-7000); Neutrophils Percent Auto 89.4 % (50-75); Platelet Count 217 X10^3/uL (150-400); Red Blood Cell Count 4.41 X10^6/uL (4.0-5.2); Red Cell Distribution Width 12.9 % (11.6-14.8); White Blood Cell Count 12.6 X10^3/uL (4.5-11.0)
[2024-09-12 13:26] LABS: Alanine Aminotransferase 15 IU/L (<35); Albumin 4.7 g/dL (3.5-5.0); Albumin Globulin Ratio 1.3 (1.0-2.8); Alkaline Phosphatase 78 U/L (38-126); Aspartate Aminotransferase 26 IU/L (14-36); BUN Creatinine Ratio 17.5 (6-22); Bilirubin Total 1.1 mg/dL (0.2-1.3); Blood Urea Nitrogen 11 mg/dL (7-17); Calcium 9.1 mg/dL (8.4-10.2); Carbon Dioxide 21 mmol/L (22-32); Chloride 103 mmol/L (98-107); Estimated Glomerular Filt Rate > 60 mL/min (>60); Globulin 3.5 g/dL (1.7-4.1); Glucose 109 mg/dL (70-100); HEMOLYSIS < 15 (0-50); Lipase 51 U/L (23-300); Potassium 3.8 mmol/L (3.4-5.1); Sodium 136 mmol/L (137-145); Total Protein 8.2 g/dL (6.3-8.2)
[2024-09-12] MEDS: KETOROLAC 30 MG/ML VIAL 15 MG IV (13:39)
--- NOTE | 2024-09-12 14:52 | ED_ITS ---
HPI - Abdominal Pain General Chief Complaint: Abdominal Pain Stated Complaint: abd px Time Seen by Provider: 09/12/24 14:37 Source: patient Mode of arrival: Ambulatory History of Present Illness HPI narrative: Patient is a 48-year-old healthy female who presents today with mid abdominal pain. Reports that it started this morning she was does not feel quite right a little nauseous no vomiting no change in bowel habits. No fever or chills. Was in normal state of health yesterday. Denies any sort of flank pain or painful frequent urination. No chest pain. Looks like she had a colonoscopy 1 year ago Related Data Home Medications Medication Instructions Recorded Confirmed thyroid (pork) 60 mg tablet 30 mg PO DAILY 08/06/19 08/06/19 ([place] Thyroid) naltrexone 0.75 mg PO CONT 10/11/23 10/11/23 progesterone micronized 100 mg 200 mg PO ONCE PM 10/11/23 10/11/23 capsule Previous Rx's Medication Instructions Recorded hydrocodone 5 mg-acetaminophen 325 1 tab PO Q6H PRN pain #6 tabs 09/12/24 mg tablet ondansetron 4 mg disintegrating 4 mg PO Q8H PRN nausea and 09/12/24 tablet vomiting #10 tabs Allergies Allergy/AdvReac Type Severity Reaction Status Date / Time codeine [CODEINE] AdvReac Unknown NAUSEA / Verified 10/11/23 08:25 VOMITING Patient History Medical History Menopausal bleeding Generalized weakness Hypothyroidism (acquired) Surgical History H/O breast augmentation History of cholecystectomy History of bilateral tubal ligation Social History Smoking Status: Never smoker Smoking Status: Never smoker alcohol intake frequency: holidays/special occasions only Exam Initial Vital Signs Initial Vital Signs: Vital Signs Temperature 98.3 F 09/12/24 12:35 Pulse Rate 74 09/12/24 12:35 Respiratory Rate 18 09/12/24 12:35 Blood Pressure 135/90 09/12/24 12:35 Pulse Oximetry 100 09/12/24 12:35 Oxygen Delivery Method Room Air 09/12/24 12:35 GENERAL: 48-year-old female appears to not feel well and in no acute distress. HEENT: Head atraumatic,EOMI, pupils reactive, face symmetric, moist mucous membranes CARDIOVASCULAR: Regular rate and rhythm without murmurs, rubs or gallops. RESPIRATORY: Breath sounds equal bilaterally, no wheezes rales or rhonchi. ABDOMEN: Soft, mid periumbilical pain no guarding no rebound no distention : No CVA tenderness EXTREMITIES: Normal range of motion, no clubbing or edema. Neurovascularly intact NEUROLOGICAL: Alert and oriented x4.Normal gait and speech SKIN: Warm, dry, no laceration, no petechiae, no rashes or lesions. Course Orders Ordered: ED Orders 09/12/24 13:06 Complete Blood Count AUTO DIFF Stat Comprehensive Metabolic Panel Stat Lipase Stat 09/12/24 14:30 Urine Microscopic Stat 09/12/24 14:52 CT abdomen pelvis w con Stat Discontinued Medications Hydromorphone HCl (Hydromorphone 0.5 Mg Inj) 0.5 mg IV NOW ONE Stop: 09/12/24 14:53 Last Admin: 09/12/24 15:26 Dose: 0.5 mg Documented By: LESTER Ketorolac Tromethamine (Ketorolac 30 Mg/Ml Vial) 15 mg IV NOW ONE Stop: 09/12/24 13:37 Last Admin: 09/12/24 13:39 Dose: 15 mg Documented By: Ondansetron HCl (Ondansetron 4 Mg/2 Ml Inj) 4 mg IV NOW PRN PRN Reason: Nausea And Vomiting Last Admin: 09/12/24 15:26 Dose: 4 mg Documented By: ELSTER Ondansetron HCl (Ondansetron 4 Mg Odt) 4 mg PO NOW PRN PRN Reason: Nausea And Vomiting Vital Signs Vital signs: Vital Signs - 8 hr 09/12/24 12:35 09/12/24 12:44 09/12/24 12:45 Temperature 98.3 F Pulse Rate 74 Respiratory Rate 18 Blood Pressure 135/90 142/75 H Pulse Oximetry 100 98 Oxygen Delivery Method Room Air 09/12/24 12:45 09/12/24 13:00 09/12/24 13:40 Temperature Pulse Rate 71 76 74 Respiratory Rate Blood Pressure Pulse Oximetry 100 100 96 Oxygen Delivery Method 09/12/24 13:41 09/12/24 13:41 09/12/24 14:00 Temperature Pulse Rate 74 Respiratory Rate Blood Pressure 146/78 H 143/80 H Pulse Oximetry 100 Oxygen Delivery Method 09/12/24 14:00 09/12/24 14:33 09/12/24 15:19 Temperature Pulse Rate 59 L 69 50 L Respiratory Rate Blood Pressure Pulse Oximetry 100 100 100 Oxygen Delivery Method 09/12/24 15:30 09/12/24 15:30 09/12/24 16:00 Temperature Pulse Rate 52 L 53 L Respiratory Rate 16 Blood Pressure 123/63 Pulse Oximetry 100 98 Oxygen Delivery Method Room Air 09/12/24 16:00 Temperature Pulse Rate 55 L Respiratory Rate 16 Blood Pressure 118/64 Pulse Oximetry 99 Oxygen Delivery Method MDM - Abdominal Pain Lab Data 09/12/24 13:06 09/12/24 13:06 Labs: Lab Results 09/12/24 09/12/24 Range/Units 13:06 14:30 WBC 12.6 H (4.5-11.0) X10^3/uL RBC 4.41 (4.0-5.2) X10^6/uL Hgb 14.1 (12.0-16.0) g/dL Hct 41.1 (36-46) % MCV 93.1 (80-100) fL MCH 32.0 (26-34) PG MCHC 34.4 (30-36) % RDW 12.9 (11.6-14.8) % Plt Count 217 (150-400) X10^3/uL Neut % (Auto) 89.4 H (50-75) % Lymph % (Auto) 6.3 L (25-40) % [place] % (Auto) 3.8 (3-14) % Eos % (Auto) 0.1 L (2-4) % Baso % (Auto) 0.4 (0-2) % Neut # (Auto) 76455 H (4433-1938) /uL Lymph # (Auto) 800 L (3472-8369) /uL [place] # (Auto) 500 (0-900) /uL Eos # (Auto) 0 (0-450) /uL Baso # (Auto) 100 (0-100) /uL Sodium 136 L (137-145) mmol/L Potassium 3.8 (3.4-5.1) mmol/L Chloride 103 (98-107) mmol/L Carbon Dioxide 21 L (22-32) mmol/L BUN 11 (7-17) mg/dL Creatinine 0.63 (0.52-1.04) mg/dL Estimated GFR > 60 (>60) mL/min BUN/Creatinine Ratio 17.5 (6-22) Glucose 109 H (70-100) mg/dL Calcium 9.1 (8.4-10.2) mg/dL Total Bilirubin 1.1 (0.2-1.3) mg/dL AST 26 (14-36) IU/L ALT 15 (<35) IU/L Alkaline Phosphatase 78 (38-126) U/L Total Protein 8.2 (6.3-8.2) g/dL Albumin 4.7 (3.5-5.0) g/dL Globulin 3.5 (1.7-4.1) g/dL Albumin/Globulin Ratio 1.3 (1.0-2.8) Lipase 51 (23-300) U/L Urine RBC None seen (0-5/HPF) Urine WBC 1-5/hpf (0-5/HPF) Ur Squamous Epith Cells 0-1 /hpf (0-5/HPF) Urine Bacteria None seen (None) Ur Culture Indicated? Cult not indicated Vol Urine Centrifuged 10ml (spun) Point of care testing: Point of Care Testing Test Results Negative Urine Dip Bedside Urine Glucose Negative Bedside Urine Bilirubin - Negative Bedside Urine Ketone +++ 80 Urine Specific Normal 1.015 Bedside Urine Occult Blood - Negative Bedside Urine pH 7.0 Bedside Urine Protein +/- 15 Bedside Urine Urobilinogen - Negative Bedside Urine Nitrite - Negative Bedside Urine Leukocytes - Negative Esterase Imaging Data CT scan - abdomen/pelvis: Radiologist's Impression: PROCEDURE: CT ABDOMEN PELVIS W CON INDICATIONS: mid ab pain TECHNIQUE: After the administration of intravenous contrast, axial sections acquired from the lung bases to the pubic symphysis. Coronal and sagittal reformats were performed. For radiation dose reduction, the following was used: automated exposure control, adjustment of mA and/or kV according to patient size. COMPARISON: CT, CT KIDNEY URETER BLADDER ([facility]), 05/04/2019, 18:28. FINDINGS: Image quality: Diagnostic. Lower Chest: No significant findings. ABDOMEN: Liver: No solid mass. Gallbladder: Prior cholecystectomy Biliary ducts: No biliary dilation. Pancreas: No ductal dilation. Spleen: Size is within normal limits. Adrenal Glands: No adrenal nodules. Kidneys and Ureters: No hydronephrosis. No solid mass. No complex renal cystic lesion which requires follow up. Stomach and Bowel: Normal colonic caliber, without significant wall thickening. Peritoneum: No abnormal intraperitoneal fluid. No free air. Ventral Wall: No significant ventral hernia. Abdominal Nodes: No retroperitoneal or mesenteric adenopathy by size criteria. Vessels: Aorta and inferior vena cava are normal in size. PELVIS: Pelvic Organs: Unremarkable. Bladder: No bladder wall thickening, accounting for underdistention. Pelvic Nodes: No enlarged lymph nodes. Miscellaneous: No inguinal hernias are seen. Reported prior appendectomy. Bones: No aggressive osseous abnormality. IMPRESSION: No source of right-sided pain is identified. Prior cholecystectomy, reported prior appendectomy. No urinary tract stone or obstruction is found. Dictated by: Chilango Bacon M.D. on 09/12/2024 at 15:44 Approved by: Chilango Bacon M.D. on 09/12/2024 at 15:49 MDM Narrative Medical decision making narrative: MDM CC: Abdominal Complicating co-morbidities: None Medical records reviewed: Prior colonoscopy Differential considered: Bowel obstruction pancreatitis cholelithiasis diverticulitis nephrolithiasis Exam documented above, pertinent findings include: Patient appears in pain abdomen is nondistended periumbilical tenderness no guarding or rebound Lab Test results independently reviewed as above. Pertinent findings: CBC WBC 12.6 Mild leukocytosis no anemia CMP no significant electrolyte abnormality bicarb is 21 no YOLANDA creatinine 0.6 glucose 109 Bilirubin liver enzymes within normal limits lipase 51 Independently reviewed EKG as above Imaging studies independently reviewed: CT abdomen pelvis no cause of abdominal pain found Treatments: Dilaudid Toradol Zofran Re-evaluations: Pain is much better after Dilaudid Toradol did not seem to help completely Discussion: Patient 48-year-old female presenting today with periumbilical pain. Blood work is overall reassuring she has a mild leukocytosis of 12. Normal lipase CT does not show cause of abdominal pain. At this time supportive care only no need for further antibiotics Discharge Plan Departure Patient Disposition: Home Clinical Impression: Abdominal pain Instructions: DI for Abdominal Pain-Adult Activity Restrictions/Additional Instructions: *You have been diagnosed with abdominal pain *What to do: At this time blood work and CT scan are overall reassuring unclear what is causing your pain. Recommend increasing diet and fluids as tolerated *Continue to take medications as directed Zofran 4 mg every 8 hours for nausea or vomiting [place] 1 tablet every 6 hours only if needed for severe pain *Follow up with your primary care provider in 2-3 days or call [phone] *Return to ER if you should have increasing pain persistent vomiting or any new, worsening or concerning symptoms CONTROLLED SUBSTANCE DISCHARGE (Narcotoic/benzodiazepine/Flexeril/Phenergan) 1. You have been prescribed narcotic medications, it does have acetaminophen/Tylenol/paracetamol in it, DO NOT TAKE MORE THAN 4,00mg in 24 hours of Tylenol. TRAMADOL DOES NOT CONTAIN TYLENOL 2. Please understand that we cannot provide further refills of narcotics, benzodiazepines or controlled substances through the ED and her pain management will need to be through your provider. 3. While on these medications you cannot drive or operate heavy machinery. 4. You cannot sign legal documents or perform any duties such as this. 5. As long as you're taking opiate pain medications he should also be taking a stool softener such as Colace, Dulcolax, MiraLAX or prune juice, to help avoid constipation. Prescriptions: New hydrocodone-acetaminophen 5-325 mg tablet 1 tab PO Q6H PRN (Reason: pain) Qty: 6 0RF ondansetron 4 mg tablet,disintegrating 4 mg PO Q8H PRN (Reason: nausea and vomiting) Qty: 10 0RF No Action thyroid (pork) [[place] Thyroid] 60 mg tablet 30 mg PO DAILY progesterone micronized 100 mg capsule 200 mg PO ONCE PM naltrexone 0.75 mg PO CONT Referrals: Mai Montoya ARNP [Primary Care Provider] - Stand Alone Forms: Patient Portal/API/Survey
[2024-09-12 14:59] LABS: Bacteria Urine None Seen; RBC Urine None Seen (0-5/HPF); Urine Volume 10mL (spun); WBC Urine 1-5/HPF (0-5/HPF)
[2024-09-12 15:00] LABS: Culture Indicated Urine Cult Not Indicated; Squamous Epithelial Cell Urine 0-1 /HPF (0-5/HPF)
[2024-09-12] MEDS: HYDROMORPHONE 0.5 MG INJ IV (15:26)
[2024-09-12] MEDS: ONDANSETRON 4 MG/2 ML INJ IV (15:26)
== END 2024-09-12 16:35 | disposition home or self-care (01) ==
PROVIDERS: Emergency Provider Emergency Medicine; PCP Internal Medicine
DX: R10.33 Periumbilical pain (principal); E03.9 Hypothyroidism, unspecified
CPT/HCPCS: 36415; 74177; 80053; 81003; 81015; 81025; 83690; 85025; 96374; 96375; 99284; J1171; J1885; J2405; Q9967

== ENCOUNTER 2024-11-28 06:39 | Emergency (ER) | payer OTHER, SELFPAY ==
[2024-11-28] VITALS (12 sets, daily range): BP systolic 99–111; BP diastolic 50–61; PULSE 55–72; RESP 11–21; TEMP 36.6; O2SAT 95–100; BMI 18.8
--- NOTE | 2024-11-28 06:45 | DI.RAD.S_ITS ---
PROCEDURE: XR CHEST 1V INDICATIONS: altered mental status TECHNIQUE: One view of the chest was acquired. COMPARISON: [facility], , CHEST 2 VIEW, 09/13/2017, 21:42. FINDINGS: Surgical changes and devices: None. Lungs and pleura: Lungs are clear. No pleural effusions or pneumothorax. Mediastinum: Mediastinal contours appear normal. Heart size is normal. Bones and chest wall: No suspicious bony lesions. Overlying soft tissues appear unremarkable. IMPRESSION: No acute cardiopulmonary abnormalities or focal consolidation. No significant discrepancy with the night warehouse manager radiology preliminary report. Dictated by: Sha Mcqueen M.D. on 11/28/2024 at 8:01 Approved by: Sha Mcqueen M.D. on 11/28/2024 at 8:01
--- NOTE | 2024-11-28 06:50 | EKG_ITS ---
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
--- NOTE | 2024-11-28 07:00 | ED_ITS ---
HPI - Head Injury General Chief complaint: Head Injury Stated complaint: Fell severe cut on head Time Seen by Provider: 11/28/24 06:59 Source: family Mode of arrival: Wheelchair Related Data Home Medications Medication Instructions Recorded Confirmed thyroid (pork) 60 mg tablet 30 mg PO DAILY 08/06/19 08/06/19 ([place] Thyroid) naltrexone 0.75 mg PO CONT 10/11/23 10/11/23 progesterone micronized 100 mg 200 mg PO ONCE PM 10/11/23 10/11/23 capsule Previous Rx's Medication Instructions Recorded hydrocodone 5 mg-acetaminophen 325 1 tab PO Q6H PRN pain #6 tabs 09/12/24 mg tablet ondansetron 4 mg disintegrating 4 mg PO Q8H PRN nausea and 09/12/24 tablet vomiting #10 tabs Allergies Allergy/AdvReac Type Severity Reaction Status Date / Time codeine [CODEINE] AdvReac Unknown NAUSEA / Verified 10/11/23 08:25 VOMITING Patient History Medical History Menopausal bleeding Generalized weakness Hypothyroidism (acquired) Surgical History H/O breast augmentation History of cholecystectomy History of bilateral tubal ligation Social History Smoking Status: Never smoker Smoking Status: Never smoker alcohol intake frequency: holidays/special occasions only Exam Initial Vital Signs Initial Vital Signs: Vital Signs Pulse Rate 57 L 11/28/24 06:46 Respiratory Rate 14 11/28/24 06:46 Blood Pressure 101/50 L 11/28/24 06:46 Pulse Oximetry 98 11/28/24 06:46 Oxygen Delivery Method Room Air 11/28/24 06:46 Course Orders Ordered: ED Orders 11/28/24 06:45 XR chest 1V Stat Ammonia (NH3) Stat Complete Blood Count AUTO DIFF Stat Comprehensive Metabolic Panel Stat Urine Drug Screen, Rapid Stat EKG-12 Lead Stat Vital Signs Vital signs: Vital Signs - 8 hr 11/28/24 06:46 Pulse Rate 57 L Respiratory Rate 14 Blood Pressure 101/50 L Pulse Oximetry 98 Oxygen Delivery Method Room Air MDM - Head Injury Lab Data 11/28/24 06:55 11/28/24 06:55 Labs: Point of Care Testing Glucose POC 147 Discharge Plan Departure Prescriptions: No Action hydrocodone-acetaminophen 5-325 mg tablet 1 tab PO Q6H PRN (Reason: pain) Qty: 6 0RF ondansetron 4 mg tablet,disintegrating 4 mg PO Q8H PRN (Reason: nausea and vomiting) Qty: 10 0RF thyroid (pork) [[place] Thyroid] 60 mg tablet 30 mg PO DAILY progesterone micronized 100 mg capsule 200 mg PO ONCE PM naltrexone 0.75 mg PO CONT Referrals: Mai Montoya ARNP [Primary Care Provider] -
[2024-11-28 07:02] LABS: Add Manual Diff / Slide Review NO; Basophils Absolute Auto 100 /uL (0-100); Basophils Percent Auto 1.8 % (0-2); Eosinophils Absolute Auto 100 /uL (0-450); Eosinophils Percent Auto 2.1 % (2-4); Hematocrit 42.8 % (36-46); Hemoglobin 14.6 g/dL (12.0-16.0); Lymphocytes Absolute Auto 2200 /uL (1100-4500); Lymphocytes Percent Auto 41.4 % (25-40); Mean Corpuscular Hemoglobin 32.2 PG (26-34); Mean Corpuscular Volume 94.7 fL (80-100); Monocytes Absolute Auto 400 /uL (0-900); Monocytes Percent Auto 8.3 % (3-14); Neutrophils Absolute Auto 2500 /uL (1500-7000); Neutrophils Percent Auto 46.4 % (50-75); Platelet Count 173 X10^3/uL (150-400); Red Blood Cell Count 4.52 X10^6/uL (4.0-5.2); Red Cell Distribution Width 13.1 % (11.6-14.8); White Blood Cell Count 5.4 X10^3/uL (4.5-11.0)
--- NOTE | 2024-11-28 07:06 | DI.CT.S_ITS ---
PROCEDURE: CT HEAD/BRAIN WO CON INDICATIONS: fall with lac TECHNIQUE: Noncontrast 4.5 mm thick angled axial sections acquired from the foramen magnum to the vertex, with coronal and sagittal reformats. For radiation dose reduction, the following was used: automated exposure control, adjustment of mA and/or kV according to patient size. COMPARISON: None. FINDINGS: Image quality: Diagnostic. CSF spaces: Basal cisterns are patent. No extra-axial fluid collections. Ventricles are normal in size and shape. Brain: No midline shift. No intracranial masses or hemorrhage. [place]-white matter interface is normal. Skull and face: Left frontal scalp contusion/hematoma. Calvarium and visualized facial bones are intact, without suspicious lesions. Sinuses: Visualized sinuses and mastoids are clear. IMPRESSION: CT head without acute intracranial abnormalities. No mass or mass effect. Left frontal scalp contusion/hematoma without underlying calvarial fractures. No significant discrepancy with the reheat furnace operator radiology preliminary report. Dictated by: Sha Mcqueen M.D. on 11/28/2024 at 8:03 Approved by: Sha Mcqueen M.D. on 11/28/2024 at 8:04
--- NOTE | 2024-11-28 07:06 | DI.CT.S_ITS ---
PROCEDURE: CT CERVICAL SPINE WO CON INDICATIONS: fall TECHNIQUE: Noncontrast 3 mm thick sections acquired from the skull base to the T4 level. Sagittal and coronal reformats were then constructed. For radiation dose reduction, the following was used: automated exposure control, adjustment of mA and/or kV according to patient size. COMPARISON: None. FINDINGS: Image quality: Diagnostic Bones: No acute fractures or dislocations. No acute compression fractures of the vertebral bodies. Craniocervical junction is intact. C1-C2 relationship is preserved. Visualized superior ribs are intact. Mild straightening of normal cervical lordosis which may be due to patient positioning and/or concurrent muscle spasms. Mild multilevel cervical spondylosis. Soft tissues: Prevertebral soft tissues are normal in thickness. No paravertebral hematomas. No apical pneumothoraces. IMPRESSION: No displaced fracture or traumatic subluxation. No significant discrepancy with the jig hand radiology preliminary report. Dictated by: Sha Mcqueen M.D. on 11/28/2024 at 8:01 Approved by: Sha Mcqueen M.D. on 11/28/2024 at 8:03
[2024-11-28 07:15] LABS: Alanine Aminotransferase 23 IU/L (<35); Albumin 4.4 g/dL (3.5-5.0); Albumin Globulin Ratio 1.5 (1.0-2.8); Alkaline Phosphatase 68 U/L (38-126); Aspartate Aminotransferase 32 IU/L (14-36); BUN Creatinine Ratio 16.2 (6-22); Bilirubin Total 1.2 mg/dL (0.2-1.3); Blood Urea Nitrogen 12 mg/dL (7-17); Carbon Dioxide 23 mmol/L (22-32); Chloride 104 mmol/L (98-107); Estimated Glomerular Filt Rate > 60 mL/min (>60); Globulin 2.9 g/dL (1.7-4.1); Glucose 147 mg/dL (70-100); HEMOLYSIS 17 (0-50); Potassium 3.6 mmol/L (3.4-5.1); Sodium 138 mmol/L (137-145); Total Protein 7.3 g/dL (6.3-8.2)
--- NOTE | 2024-11-28 07:15 | ED_ITS ---
HPI - Fall <Jeff Mcgarry DO - Last Filed: 11/28/24 07:30> General Chief Complaint: Head Injury Stated Complaint: Fell severe cut on head Time Seen by Provider: 11/28/24 06:59 Source: family Mode of arrival: Wheelchair History of Present Illness HPI Narrative: 49-year-old female past medical history of hypothyroidism comes into the ED from home for evaluation of unwitnessed fall. According to the significant other who brought patient in he went to the gym, states that she was having difficulty sleeping at around 2:00 a.m., he states that he arrived and found the patient on the floor next to the couch in a puddle of blood. According to the patient she was having difficulty sleeping, she states that she took 150 mg of trazodone and 300 mg of gabapentin of her dogs medicine to help her sleep. She states that she does not remember falling asleep or falling. She just remembers being woken up by her significant other. At time of evaluation patient is drowsy, but arousable, she has no focal deficits is able to move all 4 extremities spontaneously. States that she has never taken these medications before. Related Data Home Medications Medication Instructions Recorded Confirmed thyroid (pork) 60 mg tablet 30 mg PO DAILY 08/06/19 08/06/19 (Slaughter Thyroid) naltrexone 0.75 mg PO CONT 10/11/23 10/11/23 progesterone micronized 100 mg 200 mg PO ONCE PM 10/11/23 10/11/23 capsule Previous Rx's Medication Instructions Recorded hydrocodone 5 mg-acetaminophen 325 1 tab PO Q6H PRN pain #6 tabs 09/12/24 mg tablet ondansetron 4 mg disintegrating 4 mg PO Q8H PRN nausea and 09/12/24 tablet vomiting #10 tabs Allergies Allergy/AdvReac Type Severity Reaction Status Date / Time codeine [CODEINE] AdvReac Unknown NAUSEA / Verified 10/11/23 08:25 VOMITING Review of Systems <Jeff Mcgarry DO - Last Filed: 11/28/24 07:30> Review of Systems Narrative: General: Denies fever, chills, weight loss HEENT: Positive headache, positive fall Denies eye drainage, eye irritation, head trauma, sore throat, voice change Cardiovascular: Denies any chest pain, palpitations, tachycardia Respiratory: Denies any shortness of breath, cough, wheeze, stridor GI/: Denies any abdominal pain, nausea, vomiting, diarrhea, bright red blood per rectum, melanotic stools, urinary frequency, urinary retention, dysuria, hematuria MSK: Denies any joint pain, muscle pains, swelling Skin: Positive cut to the eyebrow Neuro: Denies any headache, lightheadedness, dizziness, fainting, weakness Psych: Denies SI/HI Patient History <Jeff Mcgarry DO - Last Filed: 11/28/24 07:30> Medical History Menopausal bleeding Generalized weakness Hypothyroidism (acquired) Surgical History H/O breast augmentation History of cholecystectomy History of bilateral tubal ligation Social History Smoking Status: Never smoker Smoking Status: Never smoker alcohol intake frequency: holidays/special occasions only Exam <Jeff Mcgarry DO - Last Filed: 11/28/24 07:30> Narrative Exam Narrative: General: Cooperative, well-developed, not in acute distress HEENT: Dried blood noted to the face head, was cm v-shaped laceration noted to the top of the left eyebrow, PERRLA, normal sclera, eyelids normal Neck: Active full range of motion, atraumatic, no tenderness to palpation of the midline spine Chest: Normal to inspection, negative crepitus, no overlying erythema ecchymosis Respiratory: Normal respiratory effort, not in acute respiratory distress, clear to auscultation bilaterally negative cough, wheeze, tachypnea, rhonchi, rales Cardiology: Regular rate rhythm negative gallop, murmur, rubs GI/: No tenderness to palpation, soft, non rigid, normal to inspection, exam deferred MSK: Full active range of motion in all 4 extremities, atraumatic, no tenderness to palpation of any bony prominences Skin: No rashes or lesions noted Neuro: Drowsy but arousable, no focal deficits NIH of 0 Alert awake oriented x3, moves all 4 extremities spontaneously, cranial nerves intact, able to answer all questions appropriately follows commands appropriately Psych: Cooperative, negative suicidal or homicidal ideations Initial Vital Signs Initial Vital Signs: Vital Signs Pulse Rate 57 L 11/28/24 06:46 Respiratory Rate 14 11/28/24 06:46 Blood Pressure 101/50 L 11/28/24 06:46 Pulse Oximetry 98 11/28/24 06:46 Oxygen Delivery Method Room Air 11/28/24 06:46 <Mercy Sosa DO - Last Filed: 11/28/24 13:50> Initial Vital Signs Initial Vital Signs: Vital Signs Pulse Rate 57 L 11/28/24 06:46 Respiratory Rate 14 11/28/24 06:46 Blood Pressure 101/50 L 11/28/24 06:46 Pulse Oximetry 98 11/28/24 06:46 Oxygen Delivery Method Room Air 11/28/24 06:46 Procedures <Jeff Mcgarry DO - Last Filed: 11/28/24 07:30> Laceration Repair Laceration 1: Time of procedure: 07:16 Site: scalp Side (If applicable): left Size (cm): 1 Description: other (V-shaped) Depth: simple, single layer Local Anesthetic: lidocaine 1% Amount of anesthesia used (mL): 5 Pre-repair: wound explored, irrigated extensively and deep structures intact Skin layer closed with: other (Ethilon) Skin layer suture size: 5-0 Number of sutures: 8 Technique: simple, interrupted <Mercy Sosa DO - Last Filed: 11/28/24 13:50> Laceration Repair Laceration 2: Site: face (nose) Size (cm): 0.25 Description: stellate Depth: simple, single layer Pre-repair: wound explored, irrigated extensively and deep structures intact Skin layer closed with: dermabond Course <Jeff Mcgarry DO - Last Filed: 11/28/24 07:30> Orders Ordered: ED Orders 11/28/24 06:45 XR chest 1V Stat EKG-12 Lead Stat 11/28/24 06:55 Acetaminophen Stat Complete Blood Count AUTO DIFF Stat Comprehensive Metabolic Panel Stat ETOH [Ethanol (ETOH)] Stat Salicylate Stat TSH [Thyroid Stimulating Hormone] Stat 11/28/24 07:06 CT cervical spine wo con Stat CT head/brain wo con Stat 11/28/24 08:43 CT facial bones wo con Stat 11/28/24 09:45 Urine Drug Screen, Rapid Stat Urine Microscopic Stat Discontinued Medications Acetaminophen (Acetaminophen 325 Mg Tablet) 975 mg PO NOW ONE Stop: 11/28/24 08:24 Last Admin: 11/28/24 08:32 Dose: 975 mg Documented By: RB Ondansetron HCl (Ondansetron 4 Mg/2 Ml Inj) 4 mg IV NOW ONE Stop: 11/28/24 08:20 Last Admin: 11/28/24 08:32 Dose: 4 mg Documented By: RB Vital Signs Vital signs: Vital Signs - 8 hr 11/28/24 06:46 11/28/24 07:42 11/28/24 08:00 Temperature Pulse Rate 57 L 56 L 61 Respiratory Rate 14 21 Blood Pressure 101/50 L Pulse Oximetry 98 100 99 Oxygen Delivery Method Room Air 11/28/24 08:00 11/28/24 08:15 11/28/24 08:15 Temperature Pulse Rate 58 L Respiratory Rate 20 Blood Pressure 107/53 L 105/54 L Pulse Oximetry 98 Oxygen Delivery Method 11/28/24 08:30 11/28/24 08:30 11/28/24 08:45 Temperature Pulse Rate 72 55 L Respiratory Rate 20 15 Blood Pressure 102/55 L Pulse Oximetry 98 98 Oxygen Delivery Method 11/28/24 08:45 11/28/24 08:59 11/28/24 08:59 Temperature Pulse Rate 63 Respiratory Rate Blood Pressure 101/53 L 107/57 L Pulse Oximetry 95 Oxygen Delivery Method 11/28/24 09:00 11/28/24 09:01 11/28/24 09:01 Temperature Pulse Rate 58 L 58 L Respiratory Rate 14 Blood Pressure 99/52 L Pulse Oximetry 98 98 Oxygen Delivery Method 11/28/24 09:15 11/28/24 09:15 11/28/24 09:30 Temperature Pulse Rate 56 L Respiratory Rate Blood Pressure 103/55 L 108/59 L Pulse Oximetry 97 Oxygen Delivery Method 11/28/24 09:30 11/28/24 10:20 Temperature 97.9 F Pulse Rate 60 62 Respiratory Rate 11 L 18 Blood Pressure 111/61 Pulse Oximetry 97 98 Oxygen Delivery Method Room Air <Mercy Sosa, - Last Filed: 11/28/24 13:50> Orders Ordered: ED Orders 11/28/24 06:45 XR chest 1V Stat EKG-12 Lead Stat 11/28/24 06:55 Acetaminophen Stat Complete Blood Count AUTO DIFF Stat Comprehensive Metabolic Panel Stat ETOH [Ethanol (ETOH)] Stat Salicylate Stat TSH [Thyroid Stimulating Hormone] Stat 11/28/24 07:06 CT cervical spine wo con Stat CT head/brain wo con Stat 11/28/24 08:43 CT facial bones wo con Stat 11/28/24 09:45 Urine Drug Screen, Rapid Stat Urine Microscopic Stat Discontinued Medications Acetaminophen (Acetaminophen 325 Mg Tablet) 975 mg PO NOW ONE Stop: 11/28/24 08:24 Last Admin: 11/28/24 08:32 Dose: 975 mg Documented By: RB Ondansetron HCl (Ondansetron 4 Mg/2 Ml Inj) 4 mg IV NOW ONE Stop: 11/28/24 08:20 Last Admin: 11/28/24 08:32 Dose: 4 mg Documented By: RB Vital Signs Vital signs: Vital Signs - 8 hr 11/28/24 06:46 11/28/24 07:42 11/28/24 08:00 Temperature Pulse Rate 57 L 56 L 61 Respiratory Rate 14 21 Blood Pressure 101/50 L Pulse Oximetry 98 100 99 Oxygen Delivery Method Room Air 11/28/24 08:00 11/28/24 08:15 11/28/24 08:15 Temperature Pulse Rate 58 L Respiratory Rate 20 Blood Pressure 107/53 L 105/54 L Pulse Oximetry 98 Oxygen Delivery Method 11/28/24 08:30 11/28/24 08:30 11/28/24 08:45 Temperature Pulse Rate 72 55 L Respiratory Rate 20 15 Blood Pressure 102/55 L Pulse Oximetry 98 98 Oxygen Delivery Method 11/28/24 08:45 11/28/24 08:59 11/28/24 08:59 Temperature Pulse Rate 63 Respiratory Rate Blood Pressure 101/53 L 107/57 L Pulse Oximetry 95 Oxygen Delivery Method 11/28/24 09:00 11/28/24 09:01 11/28/24 09:01 Temperature Pulse Rate 58 L 58 L Respiratory Rate 14 Blood Pressure 99/52 L Pulse Oximetry 98 98 Oxygen Delivery Method 11/28/24 09:15 11/28/24 09:15 11/28/24 09:30 Temperature Pulse Rate 56 L Respiratory Rate Blood Pressure 103/55 L 108/59 L Pulse Oximetry 97 Oxygen Delivery Method 11/28/24 09:30 11/28/24 10:20 Temperature 97.9 F Pulse Rate 60 62 Respiratory Rate 11 L 18 Blood Pressure 111/61 Pulse Oximetry 97 98 Oxygen Delivery Method Room Air MDM - Fall <Jeff Mcgarry, DO - Last Filed: 11/28/24 07:30> Differential Diagnosis Differential diagnosis: Likely syncope and other (Closed head injury, adverse drug reaction, cervical neck fracture, intracranial hemorrhage) Lab Data 11/28/24 06:55 11/28/24 06:55 Labs: Lab Results 11/28/24 11/28/24 Range/Units 06:55 09:45 WBC 5.4 (4.5-11.0) X10^3/uL RBC 4.52 (4.0-5.2) X10^6/uL Hgb 14.6 (12.0-16.0) g/dL Hct 42.8 (36-46) % MCV 94.7 (80-100) fL MCH 32.2 (26-34) PG MCHC 34.0 (30-36) % RDW 13.1 (11.6-14.8) % Plt Count 173 (150-400) X10^3/uL Neut % (Auto) 46.4 L (50-75) % Lymph % (Auto) 41.4 H (25-40) % [place] % (Auto) 8.3 (3-14) % Eos % (Auto) 2.1 (2-4) % Baso % (Auto) 1.8 (0-2) % Neut # (Auto) 2500 (5816-4241) /uL Lymph # (Auto) 2200 (8015-4393) /uL [place] # (Auto) 400 (0-900) /uL Eos # (Auto) 100 (0-450) /uL Baso # (Auto) 100 (0-100) /uL Sodium 138 (137-145) mmol/L Potassium 3.6 (3.4-5.1) mmol/L Chloride 104 (98-107) mmol/L Carbon Dioxide 23 (22-32) mmol/L BUN 12 (7-17) mg/dL Creatinine 0.74 (0.52-1.04) mg/dL Estimated GFR > 60 (>60) mL/min BUN/Creatinine Ratio 16.2 (6-22) Glucose 147 H (70-100) mg/dL Calcium 9.0 (8.4-10.2) mg/dL Total Bilirubin 1.2 (0.2-1.3) mg/dL AST 32 (14-36) IU/L ALT 23 (<35) IU/L Alkaline Phosphatase 68 (38-126) U/L Total Protein 7.3 (6.3-8.2) g/dL Albumin 4.4 (3.5-5.0) g/dL Globulin 2.9 (1.7-4.1) g/dL Albumin/Globulin Ratio 1.5 (1.0-2.8) TSH 2.46 (0.47-4.68) uIU/mL Urine RBC None seen (0-5/HPF) Urine WBC None seen (0-5/HPF) Ur Squamous Epith Cells 1-5 /hpf (0-5/HPF) Urine Bacteria None seen (None) Hyaline Casts 0-1/lpf (None) Granular Casts 1-5/lpf (None) Ur Culture Indicated? Cult not indicated Vol Urine Centrifuged 10ml (spun) Salicylates < 1.0 (<20) mg/dL U Opiates 300ng/mL cut Negative (Negative) Ur Oxycodone Screen Negative (Negative) Urine Methadone Screen Negative (Negative) Acetaminophen < 10 (10-30) ug/mL Ur Barbiturates Screen Negative (Negative) U Tricyclic Antidepress Negative (Negative) Ur Phencyclidine Scrn Negative (Negative) Ur Amphetamines Screen Negative (Negative) U Methamphetamines Scrn Negative (Negative) Ur MDMA Scrn (Ecstasy) Negative (Negative) U Benzodiazepines Scrn Negative (Negative) Urine Cocaine Screen Negative (Negative) U Marijuana (THC) Screen Negative (Negative) Urine pH Normal (Normal) Urine Specific [place] Normal (Normal) Ethyl Alcohol < 10 ( - 10) mg/dL Ur Creatinine Normal (Normal) Point of Care Testing Test Results Negative Glucose POC 147 Urine Dip Bedside Urine Glucose Negative Bedside Urine Bilirubin - Negative Bedside Urine Ketone - Negative Urine Specific [place] 1.010 Bedside Urine Occult Blood - Negative Bedside Urine pH 7.0 Bedside Urine Protein +/- 15 Bedside Urine Urobilinogen - Negative Bedside Urine Nitrite - Negative Bedside Urine Leukocytes - Negative Esterase MDM Narrative Medical decision making narrative: 49-year-old female who has a past medical history of hypothyroidism presents with significant other for unwitnessed fall, patient admits to taking her dogs trazodone 150 mg and gabapentin 300 mg to help her sleep. According to the significant other he went to the gym in the morning and found the patient on the floor next to the couch in a puddle of blood. Time of evaluation patient is drowsy but arousable, noted to have a 1 cm v-shaped laceration to the top of her left eyebrow, this was repaired with 8 sutures 5-0 Ethilon. 0700: Patient was signed out to Dr. Sosa, patient pending workup and imaging and re-evaluation <Mercy Sosa, DO - Last Filed: 11/28/24 13:50> Lab Data Labs: Lab Results 11/28/24 11/28/24 Range/Units 06:55 09:45 WBC 5.4 (4.5-11.0) X10^3/uL RBC 4.52 (4.0-5.2) X10^6/uL Hgb 14.6 (12.0-16.0) g/dL Hct 42.8 (36-46) % MCV 94.7 (80-100) fL MCH 32.2 (26-34) PG MCHC 34.0 (30-36) % RDW 13.1 (11.6-14.8) % Plt Count 173 (150-400) X10^3/uL Neut % (Auto) 46.4 L (50-75) % Lymph % (Auto) 41.4 H (25-40) % [place] % (Auto) 8.3 (3-14) % Eos % (Auto) 2.1 (2-4) % Baso % (Auto) 1.8 (0-2) % Neut # (Auto) 2500 (2010-5232) /uL Lymph # (Auto) 2200 (1670-5700) /uL [place] # (Auto) 400 (0-900) /uL Eos # (Auto) 100 (0-450) /uL Baso # (Auto) 100 (0-100) /uL Sodium 138 (137-145) mmol/L Potassium 3.6 (3.4-5.1) mmol/L Chloride 104 (98-107) mmol/L Carbon Dioxide 23 (22-32) mmol/L BUN 12 (7-17) mg/dL Creatinine 0.74 (0.52-1.04) mg/dL Estimated GFR > 60 (>60) mL/min BUN/Creatinine Ratio 16.2 (6-22) Glucose 147 H (70-100) mg/dL Calcium 9.0 (8.4-10.2) mg/dL Total Bilirubin 1.2 (0.2-1.3) mg/dL AST 32 (14-36) IU/L ALT 23 (<35) IU/L Alkaline Phosphatase 68 (38-126) U/L Total Protein 7.3 (6.3-8.2) g/dL Albumin 4.4 (3.5-5.0) g/dL Globulin 2.9 (1.7-4.1) g/dL Albumin/Globulin Ratio 1.5 (1.0-2.8) TSH 2.46 (0.47-4.68) uIU/mL Urine RBC None seen (0-5/HPF) Urine WBC None seen (0-5/HPF) Ur Squamous Epith Cells 1-5 /hpf (0-5/HPF) Urine Bacteria None seen (None) Hyaline Casts 0-1/lpf (None) Granular Casts 1-5/lpf (None) Ur Culture Indicated? Cult not indicated Vol Urine Centrifuged 10ml (spun) Salicylates < 1.0 (<20) mg/dL U Opiates 300ng/mL cut Negative (Negative) Ur Oxycodone Screen Negative (Negative) Urine Methadone Screen Negative (Negative) Acetaminophen < 10 (10-30) ug/mL Ur Barbiturates Screen Negative (Negative) U Tricyclic Antidepress Negative (Negative) Ur Phencyclidine Scrn Negative (Negative) Ur Amphetamines Screen Negative (Negative) U Methamphetamines Scrn Negative (Negative) Ur MDMA Scrn (Ecstasy) Negative (Negative) U Benzodiazepines Scrn Negative (Negative) Urine Cocaine Screen Negative (Negative) U Marijuana (THC) Screen Negative (Negative) Urine pH Normal (Normal) Urine Specific [place] Normal (Normal) Ethyl Alcohol < 10 ( - 10) mg/dL Ur Creatinine Normal (Normal) Point of Care Testing Test Results Negative Glucose POC 147 Urine Dip Bedside Urine Glucose Negative Bedside Urine Bilirubin - Negative Bedside Urine Ketone - Negative Urine Specific [place] 1.010 Bedside Urine Occult Blood - Negative Bedside Urine pH 7.0 Bedside Urine Protein +/- 15 Bedside Urine Urobilinogen - Negative Bedside Urine Nitrite - Negative Bedside Urine Leukocytes - Negative Esterase Imaging Data Chest x-ray: Radiologist's Impression: PROCEDURE: XR CHEST 1V INDICATIONS: altered mental status TECHNIQUE: One view of the chest was acquired. COMPARISON: [facility], , CHEST 2 VIEW, 09/13/2017, 21:42. FINDINGS: Surgical changes and devices: None. Lungs and pleura: Lungs are clear. No pleural effusions or pneumothorax. Mediastinum: Mediastinal contours appear normal. Heart size is normal. Bones and chest wall: No suspicious bony lesions. Overlying soft tissues appear unremarkable. IMPRESSION: No acute cardiopulmonary abnormalities or focal consolidation. No significant discrepancy with the night manager radiology preliminary report. Dictated by: Sha Mcqueen M.D. on 11/28/2024 at 8:01 CT scan - head: Radiologist's Impression: PROCEDURE: CT HEAD/BRAIN WO CON INDICATIONS: fall with lac TECHNIQUE: Noncontrast 4.5 mm thick angled axial sections acquired from the foramen magnum to the vertex, with coronal and sagittal reformats. For radiation dose reduction, the following was used: automated exposure control, adjustment of mA and/or kV according to patient size. COMPARISON: None. FINDINGS: Image quality: Diagnostic. CSF spaces: Basal cisterns are patent. No extra-axial fluid collections. Ventricles are normal in size and shape. Brain: No midline shift. No intracranial masses or hemorrhage. [place]-white matter interface is normal. Skull and face: Left frontal scalp contusion/hematoma. Calvarium and visualized facial bones are intact, without suspicious lesions. Sinuses: Visualized sinuses and mastoids are clear. IMPRESSION: CT head without acute intracranial abnormalities. No mass or mass effect. Left frontal scalp contusion/hematoma without underlying calvarial fractures. No significant discrepancy with the night manager radiology preliminary report. Dictated by: Sha Mcqueen M.D. on 11/28/2024 at 8:03 CT - cervical spine: Radiologist's Impression: PROCEDURE: CT CERVICAL SPINE WO CON INDICATIONS: fall TECHNIQUE: Noncontrast 3 mm thick sections acquired from the skull base to the T4 level. Sagittal and coronal reformats were then constructed. For radiation dose reduction, the following was used: automated exposure control, adjustment of mA and/or kV according to patient size. COMPARISON: None. FINDINGS: Image quality: Diagnostic Bones: No acute fractures or dislocations. No acute compression fractures of the vertebral bodies. Craniocervical junction is intact. C1-C2 relationship is preserved. Visualized superior ribs are intact. Mild straightening of normal cervical lordosis which may be due to patient positioning and/or concurrent muscle spasms. Mild multilevel cervical spondylosis. Soft tissues: Prevertebral soft tissues are normal in thickness. No paravertebral hematomas. No apical pneumothoraces. IMPRESSION: No displaced fracture or traumatic subluxation. No significant discrepancy with the night manager radiology preliminary report. Dictated by: Sha Mcqueen M.D. on 11/28/2024 at 8:01 CT face: Radiologist's Impression: PROCEDURE: CT FACIAL BONES WO CON INDICATIONS: nose swelling eye swelling TECHNIQUE: Noncontrast 2.5 mm thick axial images acquired from the mandible through the frontal sinuses, with coronal and sagittal reformatting. For radiation dose reduction, the following was used: automated exposure control, adjustment of mA and/or kV according to patient size. COMPARISON: None. FINDINGS: Image quality: Excellent. Bones and teeth: Orbital bradley are intact. Sinus bradley show no acute fracture. Remote ORIF of the anterior bradley of the maxillary sinuses. Nasal bone fracture. No nasal septal fracture. S shaped nasal septal deviation with large associated leftward pointing osteophytic bar off of the nasal septum narrowing the left nasal passage. Visualized portions of the mandible demonstrate no fractures or subluxation. Zygomatic arches are intact. Pterygoid plates are intact. Visualized portions of the skull base and auditory canals are intact. Sinuses: Paranasal sinuses are aerated, without fluid levels, mucosal thickening, or mucoceles. Mastoid air cells are aerated. Soft tissues: Left forehead superficial hematoma with associated laceration and air present in the subcutaneous forehead tissues. No enlarged lymph nodes. No soft tissue lacerations or debris. Vascular: Visualized vascular structures appear normal in the absence of contrast. Bony vascular foramina and canals are intact. IMPRESSION: 1. Nasal bone fracture. 2. No other acute facial bone fracture or mandibular fracture identified. 3. Left forehead laceration with associated forehead hematoma and subcutaneous air. 4. Remote ORIF of the maxillary sinuses. Dictated by: Rodriguez Finley M.D. on 11/28/2024 at 9:14 ECG Data Attestation: I personally reviewed and interpreted this ECG as follows: Prior ECG tracings: available for review Interpretation: Normal sinus rhythm rate 56 TX interval 160 QRS [address] changes no T- wave inversions MDM Narrative Medical decision making narrative: 49-year-old female who has a past medical history of hypothyroidism presents with significant other for unwitnessed fall, patient admits to taking her dogs trazodone 150 mg and gabapentin 300 mg to help her sleep. According to the significant other he went to the gym in the morning and found the patient on the floor next to the couch in a puddle of blood. Time of evaluation patient is drowsy but arousable, noted to have a 1 cm v-shaped laceration to the top of her left eyebrow, this was repaired with 8 sutures 5-0 Ethilon. 0700: Patient was signed out to Dr. Sosa, patient pending workup and imaging and re-evaluation 0700 Dr. Sosa patient signed out to me by , seen evaluated patient myself. She denies any suicidal ideations. States she took [id number] gabapentin and trazodone 150 mg x 1 both were their dogs because she could not sleep at 2:00 a.m.. She has a laceration to her left eyebrow which was repaired the nose is still oozing I have placed Dermabond over it. Blood work has been reviewed No leukocytosis no anemia CMP shows normal electrolytes no YOLANDA Toxicology negative for alcohol acetaminophen and salicylate Drug screen negative Urine negative for UTI and Imaging reviewed CT head negative for intracranial hemorrhage but does show a hematoma CT cervical spine no vertebral fracture Chest x-ray no acute process CT face nasal bone fracture, orbital bradley intact Patient ambulated to the restroom steady gait. Overall feels ready able to go home. Partner is at bedside available to take her home. No need for any further work Discharge Plan Departure Patient Disposition: Home Clinical Impression: Closed head injury, Facial laceration, Fracture of nasal bone, Drug reaction Instructions: DI for Laceration Repair, DI for Closed Head Injury Activity Restrictions/Additional Instructions: You have 8 sutures that need to be removed in approximately 5-7 days *You have been diagnosed with fall, nasal bone fracture *What to do: Do not blow nose. Okay to put Neosporin over sutures however do not put Neosporin on your nose until glue falls off May shower and bathe as normal don't take the dog medication anymore Expected mild headache some mild nausea Increase fluid and eat as normal today *Continue to take medications as directed Tylenol Motrin as needed for pain *Follow up with your primary care provider in 2-3 days or call [phone] Barraza to follow up in regard to the nose fracture *Return to ER if you should have persistent vomiting worsening headache or any new, worsening or concerning symptoms Prescriptions: No Action hydrocodone-acetaminophen 5-325 mg tablet 1 tab PO Q6H PRN (Reason: pain) Qty: 6 0RF ondansetron 4 mg tablet,disintegrating 4 mg PO Q8H PRN (Reason: nausea and vomiting) Qty: 10 0RF thyroid (pork) [Slaughter Thyroid] 60 mg tablet 30 mg PO DAILY progesterone micronized 100 mg capsule 200 mg PO ONCE PM naltrexone 0.75 mg PO CONT Referrals: Benjamin Barraza MD [Physician] - Mai Montoya ARNP [Primary Care Provider] - Stand Alone Forms: Patient Portal/API/Survey
--- NOTE | 2024-11-28 07:18 | PC.NURSE ---
Pt to imaging via ED stretcher with copier repair technician
[2024-11-28 07:20] LABS: Acetaminophen < 10 ug/mL (10-30); Ethanol (ETOH) < 10 mg/dL; Salicylate < 1.0 mg/dL (<20)
[2024-11-28 07:54] LABS: Thyroid Stimulating Hormone 2.46 uIU/mL (0.47-4.68)
[2024-11-28] MEDS: ACETAMINOPHEN 325 MG TABLET 975 MG PO (08:32)
[2024-11-28] MEDS: ONDANSETRON 4 MG/2 ML INJ IV (08:32)
--- NOTE | 2024-11-28 08:43 | DI.CT.S_ITS ---
PROCEDURE: CT FACIAL BONES WO CON INDICATIONS: nose swelling eye swelling TECHNIQUE: Noncontrast 2.5 mm thick axial images acquired from the mandible through the frontal sinuses, with coronal and sagittal reformatting. For radiation dose reduction, the following was used: automated exposure control, adjustment of mA and/or kV according to patient size. COMPARISON: None. FINDINGS: Image quality: Excellent. Bones and teeth: Orbital bradley are intact. Sinus bradley show no acute fracture. Remote ORIF of the anterior bradley of the maxillary sinuses. Nasal bone fracture. No nasal septal fracture. S shaped nasal septal deviation with large associated leftward pointing osteophytic bar off of the nasal septum narrowing the left nasal passage. Visualized portions of the mandible demonstrate no fractures or subluxation. Zygomatic arches are intact. Pterygoid plates are intact. Visualized portions of the skull base and auditory canals are intact. Sinuses: Paranasal sinuses are aerated, without fluid levels, mucosal thickening, or mucoceles. Mastoid air cells are aerated. Soft tissues: Left forehead superficial hematoma with associated laceration and air present in the subcutaneous forehead tissues. No enlarged lymph nodes. No soft tissue lacerations or debris. Vascular: Visualized vascular structures appear normal in the absence of contrast. Bony vascular foramina and canals are intact. IMPRESSION: 1. Nasal bone fracture. 2. No other acute facial bone fracture or mandibular fracture identified. 3. Left forehead laceration with associated forehead hematoma and subcutaneous air. 4. Remote ORIF of the maxillary sinuses. Dictated by: Rodriguez Finley M.D. on 11/28/2024 at 9:14 Approved by: Rodriguez Finley M.D. on 11/28/2024 at 9:18
[2024-11-28 09:56] LABS: UR Morphine/Opiate cutoff 300 Negative (Negative); Ur Creatinine Normal (Normal); Ur Specific Gravity Normal (Normal); Urine Amphetamines Negative (Negative); Urine Barbiturates Negative (Negative); Urine Benzodiazepines Negative (Negative); Urine Cocaine Negative (Negative); Urine MDMA Negative (Negative); Urine Methadone Negative (Negative); Urine Methamphetamines Negative (Negative); Urine Oxycodone Negative (Negative); Urine Phencyclidine Negative (Negative); Urine Tetrahydrocannabinol Negative (Negative); Urine Tricyclic Antidepressant Negative (Negative); Urine pH Normal (Normal)
[2024-11-28 09:59] LABS: Urine Volume 10mL (spun)
[2024-11-28 10:00] LABS: Bacteria Urine None Seen; RBC Urine None Seen (0-5/HPF); Squamous Epithelial Cell Urine 1-5 /HPF (0-5/HPF); WBC Urine None Seen (0-5/HPF)
[2024-11-28 10:01] LABS: Culture Indicated Urine Cult Not Indicated; Granular Casts Urine 1-5/LPF; Hyaline Casts Urine 0-1/LPF
== END 2024-11-28 10:22 | disposition home or self-care (01) ==
PROVIDERS: Student in an Organized Health Care Education/Training Program; Emergency Provider Emergency Medicine; PCP Internal Medicine
DX: S02.2XXA Fracture of nasal bones, initial encounter for closed fracture (principal); S01.81XA Laceration without foreign body of other part of head, initial encounter; S01.01XA Laceration without foreign body of scalp, initial encounter; T50.905A Adverse effect of unspecified drugs, medicaments and biological substances, initial encounter; S09.90XA Unspecified injury of head, initial encounter; R51.9 Headache, unspecified; R00.1 Bradycardia, unspecified; R41.82 Altered mental status, unspecified; W19.XXXA Unspecified fall, initial encounter
CPT/HCPCS: 12001; 12011; 36415; 70450; 70486; 71045; 72125; 80053; 80305; 80320; 80329; 81003; 81015; 81025; 82962; 84443; 85025; 93005; 96374; 99284; G0480; J2405

== ENCOUNTER 2025-02-19 02:18 | Emergency (ER) | payer OTHER, SELFPAY ==
[2025-02-19] VITALS (10 sets, daily range): BP systolic 98–122; BP diastolic 53–66; PULSE 62–76; RESP 14–18; TEMP 36.7; O2SAT 94–100; BMI 18.8
--- NOTE | 2025-02-19 02:53 | ED.ABDPAIN ---
HPI - Abdominal Pain General Chief Complaint: Abdominal Pain Stated Complaint: abd pain Time Seen by Provider: 02/19/25 02:42 Source: patient Mode of arrival: Ambulatory History of Present Illness HPI narrative: 49-year-old female with history of prior cholecystectomy, treated for intestinal infection with oral antibiotics August 2024, cannot recall if it was diverticulitis or colitis or some other problem, got better, now with 3 days duration of lower [id number]-ixsw-right abdominal discomfort, no fevers or chills. No nausea or vomiting. No painful or frequent urination. No cough shortness of breath or chest discomfort. Last bowel movement yesterday, somewhat loose, no black or red or mucoid color. No history of Crohn's disease or inflammatory bowel disease recalled. No history of kidney stones known. She is not prone to urine infection, none recent. No recent exposure to antibiotics. She has old supply of Percocet that she has taken occasionally with the onset of this pain, provides transient relief. Related Data Home Medications ?Medication ?Instructions ?Recorded ?Confirmed thyroid (pork) 60 mg tablet 30 mg PO DAILY 08/06/19 08/06/19 ([place] Thyroid) naltrexone 0.75 mg PO CONT 10/11/23 10/11/23 progesterone micronized 100 mg 200 mg PO ONCE PM 10/11/23 10/11/23 capsule Previous Rx's ?Medication ?Instructions ?Recorded hydrocodone 5 mg-acetaminophen 325 1 tab PO Q6H PRN pain #6 tabs 09/12/24 mg tablet ondansetron 4 mg disintegrating 4 mg PO Q8H PRN nausea and 09/12/24 tablet vomiting #10 tabs Allergies Allergy/AdvReac Type Severity Reaction Status Date / Time codeine (CODEINE) AdvReac Unknown NAUSEA / Verified 02/19/25 02:39 VOMITING Patient History Medical History Menopausal bleeding Generalized weakness Hypothyroidism (acquired) Surgical History H/O breast augmentation History of cholecystectomy History of bilateral tubal ligation Social History Smoking Status: Never smoker Smoking Status: Never smoker alcohol intake frequency: holidays/special occasions only Exam Narrative Exam Narrative: GENERAL: Well-developed patient, in mild distress. HEAD: Atraumatic. Normocephalic. EYES: Pupils equal round and reactive. Extraocular motions intact. No scleral icterus. No injection or drainage. ENT: Nose without bleeding, purulent drainage. Throat without erythema, tonsillar hypertrophy or exudate. Airway patent. NECK: Trachea midline. Non tender CARDIOVASCULAR: Regular rate and rhythm without murmurs, gallops, or rubs. RESPIRATORY: Clear to auscultation. Breath sounds equal bilaterally. No wheezes, rales, or rhonchi. GASTROINTESTINAL: Nondistended, some tenderness left lower quadrant more so than right lower quadrant, no guarding or rebound tenderness, bowel tones unremarkable without rushes or tinkles. EXTREMITIES: No edema or joint tenderness. BACK: Nontender without deformity or crepitance. No flank tenderness. NEURO: AOx3. Motor functions grossly nonfocal SKIN: No rash or erythema of visible areas Initial Vital Signs Initial Vital Signs: Vital Signs Temperature 98.1 F 02/19/25 02:39 Pulse Rate 71 02/19/25 02:39 Respiratory Rate 18 02/19/25 02:39 Blood Pressure 122/57 L 02/19/25 02:39 Pulse Oximetry 97 02/19/25 02:39 Oxygen Delivery Method Room Air 02/19/25 02:39 Course Orders Ordered: Discontinued Medications Hydromorphone HCl (Hydromorphone Hcl 0.5 Mg/0.5 Ml Syringe) 0.5 mg IV NOW ONE Stop: 02/19/25 03:18 Last Admin: 02/19/25 03:29 Dose: 0.5 mg Documented By: DILMA Sodium Chloride (Normal Saline 0.9%) 1,000 mls @ 1,000 mls/hr IV BOLUS ONE Stop: 02/19/25 06:10 Last Infusion: 02/19/25 06:13 Dose: Infused Documented By: Admin: 02/19/25 05:35 Dose: 1,000 mls/hr Documented By: BLAZE Ketorolac Tromethamine (Ketorolac 30 Mg/Ml Vial) 15 mg IV NOW ONE Stop: 02/19/25 04:29 Last Admin: 02/19/25 04:34 Dose: 15 mg Documented By: BLAZE Ondansetron HCl (Ondansetron 4 Mg/2 Ml Inj) 4 mg IV NOW ONE Stop: 02/19/25 03:18 Last Admin: 02/19/25 03:29 Dose: 4 mg Documented By: DILMA Vital Signs Vital signs: Vital Signs - 8 hr 02/19/25 02:39 02/19/25 03:08 02/19/25 03:08 Temperature 98.1 F Pulse Rate 71 76 Respiratory Rate 18 Blood Pressure 122/57 L 118/61 Pulse Oximetry 97 100 Oxygen Delivery Method Room Air Room Air 02/19/25 03:30 02/19/25 03:32 02/19/25 03:32 Temperature Pulse Rate 74 70 Respiratory Rate Blood Pressure 115/65 Pulse Oximetry 100 100 Oxygen Delivery Method Room Air Room Air 02/19/25 03:49 02/19/25 03:49 02/19/25 04:00 Temperature Pulse Rate 64 62 Respiratory Rate Blood Pressure 119/66 Pulse Oximetry 100 95 Oxygen Delivery Method Room Air Room Air 02/19/25 04:00 02/19/25 04:30 02/19/25 04:30 Temperature Pulse Rate 75 Respiratory Rate Blood Pressure 111/60 98/59 L Pulse Oximetry 96 Oxygen Delivery Method Room Air 02/19/25 05:00 02/19/25 05:00 02/19/25 05:30 Temperature Pulse Rate 67 66 Respiratory Rate Blood Pressure 104/55 L Pulse Oximetry 94 94 Oxygen Delivery Method 02/19/25 05:30 02/19/25 06:00 02/19/25 06:00 Temperature Pulse Rate 71 Respiratory Rate 14 Blood Pressure 98/57 L 98/53 L Pulse Oximetry 95 Oxygen Delivery Method Room Air MDM - Abdominal Pain Lab Data Attestation: I reviewed the patient's lab results. Lab results narrative: White blood cell count 97038, hemoglobin 14.4, platelets adequate. Sodium 132 with potassium 3.9, serum CO2 25. BUN 9 with creatinine 0.72. Glucose 119. T bili 1.6, other liver functions normal. Urinalysis negative. Urine GC/chlamydia negative. 02/19/25 03:05 02/19/25 03:05 Labs: Lab Results 02/19/25 02/19/25 Range/Units 03:05 04:22 WBC 15.5 H (4.5-11.0) X10^3/uL RBC 4.45 (4.0-5.2) X10^6/uL Hgb 14.4 (12.0-16.0) g/dL Hct 42.3 (36-46) % MCV 95.2 (80-100) fL MCH 32.4 (26-34) PG MCHC 34.1 (30-36) % RDW 12.6 (11.6-14.8) % Plt Count 158 (150-400) X10^3/uL Neut % (Auto) 90.0 H (50-75) % Lymph % (Auto) 4.1 L (25-40) % Park % (Auto) 5.4 (3-14) % Eos % (Auto) 0.1 L (2-4) % Baso % (Auto) 0.4 (0-2) % Neut # (Auto) 21369 H (4941-1876) /uL Lymph # (Auto) 600 L (9995-7499) /uL Park # (Auto) 800 (0-900) /uL Eos # (Auto) 0 (0-450) /uL Baso # (Auto) 100 (0-100) /uL Sodium 132 L (137-145) mmol/L Potassium 3.9 (3.4-5.1) mmol/L Chloride 97 L (98-107) mmol/L Carbon Dioxide 25 (22-32) mmol/L BUN 9 (7-17) mg/dL Creatinine 0.72 (0.52-1.04) mg/dL Estimated GFR > 60 (>60) mL/min BUN/Creatinine Ratio 12.5 (6-22) Glucose 119 H (70-99) mg/dL Calcium 8.6 (8.4-10.2) mg/dL Total Bilirubin 1.6 H (0.2-1.3) mg/dL AST 23 (14-36) IU/L ALT 15 (<35) IU/L Alkaline Phosphatase 69 (38-126) U/L Total Protein 7.7 (6.3-8.2) g/dL Albumin 4.3 (3.5-5.0) g/dL Globulin 3.4 (1.7-4.1) g/dL Albumin/Globulin Ratio 1.3 (1.0-2.8) Lipase 29 (23-300) U/L Urine RBC 0-1/hpf (0-5/HPF) Urine WBC None seen (0-5/HPF) Ur Squamous Epith Cells 0-1 /hpf (0-5/HPF) Urine Bacteria None seen (None) Ur Culture Indicated? Cult not indicated Vol Urine Centrifuged 10ml (spun) Urine Test Negative (Negative) Ur Chlamydia DNA (PCR) Not detected N gonorrhoeae DNA (PCR) Not detected Point of care testing: Urine Dip Bedside Urine Glucose Negative Bedside Urine Bilirubin - Negative Bedside Urine Ketone +++ 80 Urine Specific [place] 1.010 Bedside Urine Occult Blood +/- Bedside Urine pH 6.0 Bedside Urine Protein - Negative Bedside Urine Urobilinogen - Negative Bedside Urine Nitrite - Negative Bedside Urine Leukocytes - Negative Esterase MDM Narrative Medical decision making narrative: 49-year-old female with bilateral lower quadrant abdominal discomfort, afebrile, sirs screen negative. Left lower quadrant more so than right lower quadrant tenderness on exam. Labs pending. Consider CT imaging. History of contrast allergy, prefers not to have contrast. CT abdomen and pelvis noncontrast study ordered. Requests pain medication. IV Dilaudid. DDx consider colitis, diverticulitis, appendicitis, enteritis, constipation, UTI, PID, other sample mounter etiology. Labs show WBC 15k, normal renal function LFTs Lipase UA, urine GC/chlamydia pending. CT Abd/Pelvis ordered. CT abdomen and pelvis noncontrast. Impressions: ?Nonobstructing bilateral intrarenal calculi. Appendix not visualized.. See tele radiology report. Still having pain, IV Toradol added. Ultrasound pelvis requested, patient willing to have further examination. Urine GC/chlamydia also negative. Ultrasound pelvis performed, sono tech verbal report no acute changes obvious. Await Radiology report/reading. Patient wanted to be discharged home, stated that she had appointment with her PCP 430 p.m. later today. Aware that the formal radiology reading was not yet available. Discharge per patient request. Advised to take Tylenol and or Motrin as needed for pain control. Advised to follow up with PCP for appointment later today, and to obtain the report of the ultrasound of the pelvis, for further workup as an outpatient as needed. Return precautions discussed. Discharge per patient request. (629, late entry: Shortly after patient discharged per her request, the fax dictated teleradiology report was received. Pelvic ultrasound. Impressions: ?Normal sonographic appearance of the uterus endometrium and bilateral adnexa.? See tele radiology report) Discharge Plan Departure Patient Disposition: Home Clinical Impression: Abdominal pain Activity Restrictions/Additional Instructions: Lower abdominal pain of unclear cause. Lab testing unremarkable. CT abdomen and pelvis imaging also unremarkable. You had prior colonoscopy last year that was reportedly clear. You did have ultrasound pelvis imaging, the personnel and payroll technician did not mentioned finding any significant pathology, however the radiology report was not available at the time of your discharge. You wanted to go home. In you stated that you would be seeing your primary care provider at 4:30 p.m. later today. Take Tylenol and or Motrin as needed for discomfort. Follow up with your regular provider later today, to review the results of the pelvic ultrasound radiology report. Return earlier to this/nearest emergency department for any change worsening symptoms or any concerns prior. Prescriptions: No Action hydrocodone-acetaminophen 5-325 mg tablet 1 tab PO Q6H PRN (Reason: pain) Qty: 6 0RF ondansetron 4 mg tablet,disintegrating 4 mg PO Q8H PRN (Reason: nausea and vomiting) Qty: 10 0RF thyroid (pork) [[place] Thyroid] 60 mg tablet 30 mg PO DAILY progesterone micronized 100 mg capsule 200 mg PO ONCE PM naltrexone 0.75 mg PO CONT Referrals: Mai Montoya ARNP [Primary Care Provider, Family Practice] Stand Alone Forms: Patient Portal/API
--- NOTE | 2025-02-19 03:01 | PC.NURSE ---
Pt unable to provide urine sample at this time. States it is to painful.
--- NOTE | 2025-02-19 03:17 | DI.CT.S_ITS ---
PROCEDURE: CT ABDOMEN PELVIS WO CON INDICATIONS: LLQ>RLQ abd pain TECHNIQUE: Axial sections were acquired from the lung bases to the pubic symphysis. Coronal and sagittal reformats were performed. For radiation dose reduction, the following was used: automated exposure control, adjustment of mA and/or kV according to patient size. COMPARISON: [facility], CT, CT ABDOMEN PELVIS W CON, 09/12/2024, 14:55. FINDINGS: Image quality: Diagnostic. Lower Chest: No significant findings. URINARY: Right Kidney: Several punctate nonobstructive stones , no hydronephrosis. Right Ureter: No hydroureter. Left Kidney: Several punctate nonobstructive stones, no hydronephrosis Left Ureter: No hydroureter. Bladder: Normal wall thickness. No stones. ABDOMEN: Liver: No contour-deforming solid mass. Gallbladder: Previously resected Biliary ducts: No biliary dilation. Pancreas: No ductal dilation. Spleen: Size is within normal limits. Adrenal Glands: No adrenal nodules. Stomach and Bowel: Normal colonic caliber, without significant wall thickening. Peritoneum: No abnormal intraperitoneal fluid. No free air. Ventral Wall: No hernia. Abdominal Nodes: No enlarged retroperitoneal or mesenteric lymph nodes. Vessels: Aorta and inferior vena cava are normal in size. PELVIS: Pelvic Organs: Unremarkable. Pelvic Nodes: Unremarkable. Miscellaneous: No inguinal hernias are seen. Appendix not found. No secondary CT evidence of acute appendicitis is seen. No diverticulitis is identified. Bones: Unremarkable. IMPRESSION: No obstructing stones or hydronephrosis. Several punctate bilateral collecting system stones none of which are obstructive. Prior cholecystectomy. Note: Agree with preliminary report. Dictated by: Chilango Bacon M.D. on 02/19/2025 at 9:31 Approved by: Chilango Bacon M.D. on 02/19/2025 at 9:34
[2025-02-19 03:18] LABS: Add Manual Diff / Slide Review NO; Hematocrit 42.3 % (36-46); Hemoglobin 14.4 g/dL (12.0-16.0); Lymphocytes Absolute Auto 600 /uL (1100-4500); Mean Corpuscular HGB Conc 34.1 % (30-36); Mean Corpuscular Hemoglobin 32.4 PG (26-34); Mean Corpuscular Volume 95.2 fL (80-100); Platelet Count 158 X10^3/uL (150-400)
[2025-02-19 03:27] LABS: Alanine Aminotransferase 15 IU/L (<35); Albumin 4.3 g/dL (3.5-5.0); Albumin Globulin Ratio 1.3 (1.0-2.8); Alkaline Phosphatase 69 U/L (38-126); Blood Urea Nitrogen 9 mg/dL (7-17); Calcium 8.6 mg/dL (8.4-10.2); Carbon Dioxide 25 mmol/L (22-32); Chloride 97 mmol/L (98-107); Estimated Glomerular Filt Rate > 60 mL/min (>60); Globulin 3.4 g/dL (1.7-4.1); Glucose 119 mg/dL (70-99); HEMOLYSIS < 15 (0-50); Lipase 29 U/L (23-300); Potassium 3.9 mmol/L (3.4-5.1); Sodium 132 mmol/L (137-145); Total Protein 7.7 g/dL (6.3-8.2)
[2025-02-19] MEDS: ONDANSETRON 4 MG/2 ML INJ IV (03:29)
--- NOTE | 2025-02-19 04:22 | DI.US.S_ITS ---
PROCEDURE: US PELVIC COMPLETE INDICATIONS: Ldiu-qfonbtq-shcm-right lower quadrant pain, CT abd/p neg TECHNIQUE: Real-time scanning was performed of the pelvic organs, with image documentation. Additional endovaginal scanning was necessary due to incomplete visualization of the adnexal and endometrial structures by transabdominal scanning. COMPARISON: [facility], US, US PELVIC COMPLETE, 04/09/2023, 7:10. FINDINGS: Uterus: Uterus is anteverted and normal in size at 9.5 x 3.1 x 4.9 cm. The myometrium is heterogeneous. The endometrium measures 5.7 mm combined thickness. Ovaries: The right ovary measures 1.9 x 2.5 x 1.5 cm, with a calculated ovarian volume of 3.5 cc. The left ovary measures 2.3 x 1.4 x 1.2 cm, with a calculated ovarian volume of 1.9 cc. The ovaries have a normal sonographic appearance. Less than 12 follicles can be seen in each ovary. No adnexal masses are seen. Other: Free fluid with echogenic debris. IMPRESSION: Normal appearance of the uterus and ovaries. Free fluid with echogenic debris, may represent blood product. Findings are concordant with preliminary interpretation provided by [facility]. We strive to produce accurate, complete, and clear reports of imaging services. To assist us in improving patient care, this report was composed using standard report templates and voice recognition software. Therefore, it may contain abnormal punctuation, insertions and/or omissions. Occasional wrong-word or sound-alike substitutions may occur. Though we review the report and make efforts to correct it, we do recommend that the report be read carefully in proper context to recognize any text inaccuracies. Dictated by: Michael Cordero M.D. on 02/19/2025 at 7:59 Approved by: Michael Cordero M.D. on 02/19/2025 at 8:03
[2025-02-19] MEDS: KETOROLAC 30 MG/ML VIAL 15 MG IV (04:34)
[2025-02-19 04:50] LABS: Culture Indicated Urine Cult Not Indicated
--- NOTE | 2025-02-19 05:21 | PC.NURSE ---
US at bedside
[2025-02-19] MEDS: SODIUM CHLORIDE 0.9% 1,000 ML 1000 ML IV (05:35)
[2025-02-19 06:32] LABS: Urine N gonorrhoeae NOT DETECTED
[2025-02-19 06:33] LABS: Urine Chlamydia NOT DETECTED
== END 2025-02-19 06:15 | disposition home or self-care (01) ==
PROVIDERS: Emergency Provider Emergency Medicine; PCP Internal Medicine
DX: R10.30 Lower abdominal pain, unspecified (principal)
CPT/HCPCS: 36415; 74176; 76830; 76856; 80053; 81003; 81015; 81025; 83690; 85025; 87086; 87491; 87591; 96361; 96374; 96375; 99284; J1171; J1885; J2405